=== PATIENT | male | born 1935 | race Caucasian/White ===

== ENCOUNTER 2018-10-21 18:18 | Inpatient (IN) | payer MEDICARE, OTHER ==
[~2018-10-21] VITALS: Ht 177.8 cm; Wt 96.2 kg
[2018-10-21] VITALS (15 sets, daily range): BP systolic 90–106; BP diastolic 52–67
--- OUTSIDE RECORDS SUMMARY | 2018-10-21 20:18 | XMS REPORT | Clinical Summary ---
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 Juan Ramon Landeros MD Retention of urine, unspecified Urinary incontinence 788.30 Active Juan Ramon Landeros MD Urinary incontinence, unspecified Urethral stricture 598.9 Active Juan Ramon Landeros MD Urethral stricture, unspecified Medication List Medication Instructions Start Date Stop Date Generic Name NDC Status Provider Patient Instruction LEVSIN 0.125 MG ORAL TABLET 1 tab by mouth every 8 hours prn bladder spasms HYOSCYAMINE SULFATE 98532016796 Active Juan Ramon Landeros MD Active ZOFRAN 4 MG ORAL TABLET 1 po q6hr PRN Nausea ONDANSETRON HCL 20940205150 Active Juan Ramon Landeros MD Active ZINC 50 MG ORAL TABLET 1 tab by mouth daily ZINC 96977600048 Active Juan Ramon Landeros MD Active XARELTO 20 MG ORAL TABLET 1 tab by mouth daily RIVAROXABAN 75379133812 Active Juan Ramon Landeros MD Active XALATAN 0.005 % OPHTHALMIC SOLUTION 1 drop in both eyes LATANOPROST 32100194433 Active Juan Ramon Landeros MD Active VITAMIN C PLUS 500 MG ORAL TABLET 1 tab by mouth daily BIOFLAVONOID PRODUCTS 64805041786 Active Juan Ramon Landeros MD Active FLOMAX 0.4 MG ORAL CAPSULE 1 Daily TAMSULOSIN HCL 00957955080 Active Juan Ramon Landeros MD Active SENOKOT 8.6 MG ORAL TABLET 1 tab by mouth twice daily SENNOSIDES 15275558314 Active Juan Ramon Landeros MD Active JUAN-E.P.A. 200-300 MG ORAL CAPSULE 1 tab by mouth twice daily OMEGA-3 FATTY ACIDS 27569773176 Active Juan Ramon Landeros MD Active BENICAR 5 MG ORAL TABLET 1 tab by mouth daily OLMESARTAN MEDOXOMIL 75884199040 Active Juan Ramon Landeros MD Active LOPRESSOR 50 MG ORAL TABLET 1 tab by mouth twice daily METOPROLOL TARTRATE 83754668446 Active Juan Ramon Landeros MD Active KAVA KAVA 200 MG ORAL CAPSULE 1 cap by mouth twice daily prn anxiety KAVA (PIPER METHYSTICUM) 03083515020 Active Juan Ramon Landeros MD Active CARDIZEM CD 120 MG ORAL CAPSULE EXTENDED RELEASE 24 HOUR 1 tab by mouth daily DILTIAZEM HCL COATED BEADS 41892147328 Active Juan Ramon Landeros MD Active BISCOLAX 10 MG RECTAL SUPPOSITORY 1 suppository rectally every 24 hours prn constipation BISACODYL 40332730182 Active Juan Ramon Landeros MD Active BENEFIBER PLUS CALCIUM ORAL POWDER 1 tablespoon by mouth daily WHEAT DEXTRIN-CALCIUM 93553743235 Active Juan Ramon Landeros MD Active ACETAMINOPHEN 325 MG ORAL TABLET 2 tabs by mouth every 4 hours prn ACETAMINOPHEN 53523084237 Active Juan Ramon Landeros MD Active Advance Directives Directive Description Start Date DURABLE POWER OF ACCOUNT DEVELOPMENT EXECUTIVE FOR HEALTHCARE Vital Signs Date Name Value Unit Range Description blood pressure, diastolic, repeated by physician 72 BP martínez blood pressure, diastolic 72 mm[Hg] BP martínez blood pressure, systolic, repeated by physician 118 BP sys blood pressure, systolic 118 mm[Hg] BP sys pulse rate E&M 70 /min Heart rate temperature E&M 98.0 [degF] Body temperature blood pressure, diastolic 65 mm[Hg] BP martínez blood pressure, systolic 115 mm[Hg] BP sys pulse rate E&M 68 /min Heart rate temperature E&M 98.1 [degF] Body temperature weight E&M 213 [lb_av] Weight Measured Encounters Code Encounter Date Provider Facility CPT-30611 Level 3 Est. Patient 15:42:26 CDT Juan Ramon Landeros MD [facility] CPT-77087 Level 3 Est. Patient 12:46:20 CDT Juan Ramon Landeros MD [facility] CPT-84246 Level 3 Est. Patient 23:23:09 CDT Juan Ramon Landeros MD [facility] CPT-07415 Level 3 New Patient 14:12:38 CDT Juan Ramon Landeros MD [facility] Procedures Code Procedure Name Date Entry Date Standard Description CPT-20502 Dil ureth strict sound/dilator M int 12:46:21 CDT 06/02 CPT-49073 Insert temp indwelling bld cath comp 12:46:21 CDT 06/02 CPT-52740 Cystoscopy 12:46:21 CDT CPT-89342 Bladder Scan 14:12:38 CDT
--- OUTSIDE RECORDS SUMMARY | 2018-10-21 20:18 | XMS REPORT | Clinical Summary ---
Author Author Admin, QIE Organization [facility] Address Unknown Phone Unavailable Allergies, Adverse Reactions, [...] 8 hours prn bladder spasms HYOSCYAMINE SULFATE 67817509129 Active Juan Ramon Landeros MD Active ZOFRAN 4 MG ORAL TABLET 1 po q6hr PRN Nausea ONDANSETRON HCL 20996735991 Active Juan Ramon Landeros MD Active ZINC 50 MG ORAL TABLET 1 tab by mouth daily ZINC 03460964447 Active Juan Ramon Landeros MD Active XARELTO 20 MG ORAL TABLET 1 tab by mouth daily RIVAROXABAN 64237262666 Active Juan Ramon Landeros MD Active XALATAN 0.005 % OPHTHALMIC SOLUTION 1 drop in both eyes LATANOPROST 08088748728 Active Juan Ramon Landeros MD Active VITAMIN C PLUS 500 MG ORAL TABLET 1 tab by mouth daily BIOFLAVONOID PRODUCTS 67082069170 Active Juan Ramon Landeros MD Active FLOMAX 0.4 MG ORAL CAPSULE 1 Daily TAMSULOSIN HCL 19557989351 Active Juan Ramon Landeros MD Active SENOKOT 8.6 MG ORAL TABLET 1 tab by mouth twice daily SENNOSIDES 02886014565 Active Juan Ramon Landeros MD Active JUAN-E.P.A. 200-300 MG ORAL CAPSULE 1 tab by mouth twice daily OMEGA-3 FATTY ACIDS 90913430245 Active Juan Ramon Landeros MD Active BENICAR 5 MG ORAL TABLET 1 tab by mouth daily OLMESARTAN MEDOXOMIL 84413217517 Active Juan Ramon Landeros MD Active LOPRESSOR 50 MG ORAL TABLET 1 tab by mouth twice daily METOPROLOL TARTRATE 42197162689 Active Juan Ramon Landeros MD Active KAVA KAVA 200 MG ORAL CAPSULE 1 cap by mouth twice daily prn anxiety KAVA (PIPER METHYSTICUM) 34685475879 Active Juan Ramon Landeros MD Active CARDIZEM CD 120 MG ORAL CAPSULE EXTENDED RELEASE 24 HOUR 1 tab by mouth daily DILTIAZEM HCL COATED BEADS 95408611520 Active Juan Ramon Landeros MD Active BISCOLAX 10 MG RECTAL SUPPOSITORY 1 suppository rectally every 24 hours prn constipation BISACODYL 27637912136 Active Juan Ramon Landeros MD Active BENEFIBER PLUS CALCIUM ORAL POWDER 1 tablespoon by mouth daily WHEAT DEXTRIN-CALCIUM 75834888400 Active Juan Ramon Landeros MD Active ACETAMINOPHEN 325 MG ORAL TABLET 2 tabs by mouth every 4 hours prn ACETAMINOPHEN 80645199221 Active Juan Ramon Landeros MD Active Advance Directives Directive Description Start Date DURABLE POWER OF DRY PLASTERER HELPER FOR HEALTHCARE Vital Signs Date Name Value [...] Measured Encounters Code Encounter Date Provider Facility CPT-87165 Level 3 Est. Patient 15:42:26 CDT Juan Ramon Landeros MD [facility] CPT-37930 Level 3 Est. Patient 12:46:20 CDT Juan Ramon Landeros MD [facility] CPT-78887 Level 3 Est. Patient 23:23:09 CDT Juan Ramon Landeros MD [facility] CPT-65795 Level 3 New Patient 14:12:38 CDT Juan Ramon Landeros MD [facility] Procedures Code Procedure Name Date Entry Date Standard Description CPT-19874 Dil ureth strict sound/dilator M int 12:46:21 CDT 06/02 CPT-37884 Insert temp indwelling bld cath comp 12:46:21 CDT 06/02 CPT-14847 Cystoscopy 12:46:21 CDT CPT-20055 Bladder Scan 14:12:38 CDT
--- OUTSIDE RECORDS SUMMARY | 2018-10-21 20:19 | XMS REPORT | Clinical Summary ---
Author Author Admin, E Organization [facility] Address Unknown Phone Unavailable Allergies, Adverse [...] 8 hours prn bladder spasms HYOSCYAMINE SULFATE 50791296082 Active Juan Ramon Landeros MD Active ZOFRAN 4 MG ORAL TABLET 1 po q6hr PRN Nausea ONDANSETRON HCL 11565557799 Active Juan Ramon Landeros MD Active ZINC 50 MG ORAL TABLET 1 tab by mouth daily ZINC 34139609690 Active Juan Ramon Landeros MD Active XARELTO 20 MG ORAL TABLET 1 tab by mouth daily RIVAROXABAN 47893903296 Active Juan Ramon Landeros MD Active XALATAN 0.005 % OPHTHALMIC SOLUTION 1 drop in both eyes LATANOPROST 08264269141 Active Juan Ramon Landeros MD Active VITAMIN C PLUS 500 MG ORAL TABLET 1 tab by mouth daily BIOFLAVONOID PRODUCTS 59885350846 Active Juan Ramon Landeros MD Active FLOMAX 0.4 MG ORAL CAPSULE 1 Daily TAMSULOSIN HCL 88981672525 Active Juan Ramon Landeros MD Active SENOKOT 8.6 MG ORAL TABLET 1 tab by mouth twice daily SENNOSIDES 99315166155 Active Juan Ramon Landeros MD Active JUAN-E.P.A. 200-300 MG ORAL CAPSULE 1 tab by mouth twice daily OMEGA-3 FATTY ACIDS 23080962551 Active Juan Ramon Landeros MD Active BENICAR 5 MG ORAL TABLET 1 tab by mouth daily OLMESARTAN MEDOXOMIL 03299930974 Active Juan Ramon Landeros MD Active LOPRESSOR 50 MG ORAL TABLET 1 tab by mouth twice daily METOPROLOL TARTRATE 06272299197 Active Juan Ramon Landeros MD Active KAVA KAVA 200 MG ORAL CAPSULE 1 cap by mouth twice daily prn anxiety KAVA (PIPER METHYSTICUM) 06320885264 Active Juan Ramon Landeros MD Active CARDIZEM CD 120 MG ORAL CAPSULE EXTENDED RELEASE 24 HOUR 1 tab by mouth daily DILTIAZEM HCL COATED BEADS 39382678159 Active Juan Ramon Landeros MD Active BISCOLAX 10 MG RECTAL SUPPOSITORY 1 suppository rectally every 24 hours prn constipation BISACODYL 77147401682 Active Juan Ramon Landeros MD Active BENEFIBER PLUS CALCIUM ORAL POWDER 1 tablespoon by mouth daily WHEAT DEXTRIN-CALCIUM 69498174746 Active Juan Ramon Landeros MD Active ACETAMINOPHEN 325 MG ORAL TABLET 2 tabs by mouth every 4 hours prn ACETAMINOPHEN 92391685605 Active Juan Ramon Landeros MD Active Advance Directives Directive Description Start Date DURABLE POWER OF FINISHED STOCK INSPECTOR FOR HEALTHCARE Vital Signs Date Name Value [...] Measured Encounters Code Encounter Date Provider Facility CPT-28389 Level 3 Est. Patient 15:42:26 CDT Juan Ramon Landeros MD [facility] CPT-78405 Level 3 Est. Patient 12:46:20 CDT Juan Ramon Landeros MD [facility] CPT-93571 Level 3 Est. Patient 23:23:09 CDT Juan Ramon Landeros MD [facility] CPT-60123 Level 3 New Patient 14:12:38 CDT Juan Ramon Landeros MD [facility] Procedures Code Procedure Name Date Entry Date Standard Description CPT-52428 Dil ureth strict sound/dilator M int 12:46:21 CDT 06/02 CPT-03566 Insert temp indwelling bld cath comp 12:46:21 CDT 06/02 CPT-73254 Cystoscopy 12:46:21 CDT CPT-78239 Bladder Scan 14:12:38 CDT
--- OUTSIDE RECORDS SUMMARY | 2018-10-21 20:19 | XMS REPORT | Clinical Summary ---
Author Author Admin, JOHANN Organization [facility] Address Unknown Phone Unavailable Allergies, Adverse Reactions, [...] Generic Name NDC Status Provider Patient Instruction ZOFRAN 4 MG TABS 1 po q6hr PRN Nausea ONDANSETRON HCL 85380604686 Active Juan Ramon Landeros MD Active ZINC 50 MG ORAL TABS 1 tab by mouth daily ZINC 81130408184 Active Juan Ramon Landeros MD Active XARELTO 20 MG ORAL TABS 1 tab by mouth daily RIVAROXABAN 30186273696 Active Juan Ramon Landeros MD Active XALATAN 0.005 % SOLUTION 1 drop in both eyes LATANOPROST 65145233793 Active Juan Ramon Landeros MD Active VITAMIN C PLUS 500 MG ORAL TABS 1 tab by mouth daily BIOFLAVONOID PRODUCTS 49810922216 Active Juan Ramon Landeros MD Active FLOMAX 0.4 MG CAPS 1 Daily TAMSULOSIN HCL 04742087245 Active Juan Ramon Landeros MD Active SENOKOT 8.6 MG ORAL TABS 1 tab by mouth twice daily SENNOSIDES 29190869346 Active Juan Ramon Landeros MD Active JUAN-E.P.A. 200-300 MG ORAL CAPS 1 tab by mouth twice daily OMEGA-3 FATTY ACIDS 44974618393 Active Juan Ramon Landeros MD Active BENICAR 5 MG ORAL TABS 1 tab by mouth daily OLMESARTAN MEDOXOMIL 45141041922 Active Juan Ramon Landeros MD Active LOPRESSOR 50 MG TAB 1 tab by mouth twice daily METOPROLOL TARTRATE 50393085624 Active Juan Ramon Landeros MD Active KAVA KAVA 200 MG ORAL CAPS 1 cap by mouth twice daily prn anxiety KAVA (PIPER METHYSTICUM) 07776883107 Active Juan Ramon Landeros MD Active CARDIZEM CD 120 MG CAPCR24 1 tab by mouth daily DILTIAZEM HCL COATED BEADS 53372428422 Active Juan Ramon Landeros MD Active BISCOLAX 10 MG RECTAL SUPP 1 suppository rectally every 24 hours prn constipation BISACODYL 45789424166 Active Juan Ramon Landeros MD Active BENEFIBER PLUS CALCIUM ORAL POWD 1 tablespoon by mouth daily WHEAT DEXTRIN-CALCIUM 35808164604 Active Juan Ramon Landeros MD Active ACETAMINOPHEN 325 MG ORAL TABS 2 tabs by mouth every 4 hours prn ACETAMINOPHEN 47777529978 Active Juan Ramon Landeros MD Active Advance Directives Directive Description Start Date DURABLE POWER OF SHIRT IRONER SUPERVISOR FOR HEALTHCARE Vital Signs Date Name Value Unit Range Description blood pressure, diastolic 60 mm[Hg] BP martínez blood pressure, systolic 120 mm[Hg] BP sys pulse rate E&M 70 /min Heart rate temperature E&M 97.6 [degF] Body temperature weight E&M 213 [lb_av] Weight Measured blood pressure, diastolic 83 mm[Hg] BP martínez blood pressure, systolic 132 mm[Hg] BP sys pulse rate E&M 75 /min Heart rate temperature E&M 98.1 [degF] Body temperature weight E&M 213 [lb_av] Weight Measured blood pressure, diastolic 80 mm[Hg] BP martínez blood pressure, systolic 140 mm[Hg] BP sys height E&M 70 [in_us] Bdy height pulse rate E&M 76 /min Heart rate temperature E&M 98.2 [degF] Body temperature weight E&M 213 [lb_av] Weight Measured Encounters Code Encounter Date Provider Facility CPT-19194 Level 3 Est. Patient 12:46:20 CDT Juan Ramon Landeros MD [facility] CPT-14927 Level 3 Est. Patient 23:23:09 CDT Juan Ramon Landeros MD [facility] CPT-66250 Level 3 New Patient 14:12:38 CDT Juan Ramon Landeros MD [facility] Procedures Code Procedure Name Date Entry Date Standard Description CPT-34063 Dil ureth strict sound/dilator M int 12:46:21 CDT 06/02 CPT-24673 Insert temp indwelling bld cath comp 12:46:21 CDT 06/02 CPT-83200 Cystoscopy 12:46:21 CDT CPT-88784 Bladder Scan 14:12:38 CDT
--- OUTSIDE RECORDS SUMMARY | 2018-10-21 20:19 | XMS REPORT | Clinical Summary ---
Author Author Admin, E Organization [facility] Address Unknown Phone Unavailable Allergies, Adverse Reactions, [...] 8 hours prn bladder spasms HYOSCYAMINE SULFATE 49113899841 Active Juan Ramon Landeros MD Active ZOFRAN 4 MG TABS 1 po q6hr PRN Nausea ONDANSETRON HCL 49672887957 Active Juan Ramon Landeros MD Active ZINC 50 MG ORAL TABS 1 tab by mouth daily ZINC 01702080213 Active Juan Ramon Landeros MD Active XARELTO 20 MG ORAL TABS 1 tab by mouth daily RIVAROXABAN 76066322887 Active Juan Ramon Landeros MD Active XALATAN 0.005 % SOLUTION 1 drop in both eyes LATANOPROST 25511638380 Active Juan Ramon Landeros MD Active VITAMIN C PLUS 500 MG ORAL TABS 1 tab by mouth daily BIOFLAVONOID PRODUCTS 45878888301 Active Juan Ramon Landeros MD Active FLOMAX 0.4 MG CAPS 1 Daily TAMSULOSIN HCL 78299963670 Active Juan Ramon Landeros MD Active SENOKOT 8.6 MG ORAL TABS 1 tab by mouth twice daily SENNOSIDES 38773727891 Active Juan Ramon Landeros MD Active JUAN-E.P.A. 200-300 MG ORAL CAPS 1 tab by mouth twice daily OMEGA-3 FATTY ACIDS 51240688407 Active Juan Ramon Landeros MD Active BENICAR 5 MG ORAL TABS 1 tab by mouth daily OLMESARTAN MEDOXOMIL 04778605875 Active Juan Ramon Landeros MD Active LOPRESSOR 50 MG TAB 1 tab by mouth twice daily METOPROLOL TARTRATE 75893279140 Active Juan Ramon Landeros MD Active KAVA KAVA 200 MG ORAL CAPS 1 cap by mouth twice daily prn anxiety KAVA (PIPER METHYSTICUM) 87803845486 Active Juan Ramon Landeros MD Active CARDIZEM CD 120 MG CAPCR24 1 tab by mouth daily DILTIAZEM HCL COATED BEADS 70830272376 Active Juan Ramon Landeros MD Active BISCOLAX 10 MG RECTAL SUPP 1 suppository rectally every 24 hours prn constipation BISACODYL 74721561015 Active Juan Ramon Landeros MD Active BENEFIBER PLUS CALCIUM ORAL POWD 1 tablespoon by mouth daily WHEAT DEXTRIN-CALCIUM 09184222337 Active Juan Ramon Landeros MD Active ACETAMINOPHEN 325 MG ORAL TABS 2 tabs by mouth every 4 hours prn ACETAMINOPHEN 38764501464 Active Juan Ramon Landeros MD Active Advance Directives Directive Description Start Date DURABLE POWER OF SHELL MACHINE OPERATOR FOR HEALTHCARE Vital Signs Date Name Value Unit Range Description blood pressure, diastolic 65 mm[Hg] BP martínez blood pressure, systolic 115 mm[Hg] BP sys pulse rate E&M 68 /min Heart rate temperature E&M 98.1 [degF] Body temperature weight E&M 213 [lb_av] Weight Measured blood pressure, diastolic 60 mm[Hg] BP martínez [...] Measured Encounters Code Encounter Date Provider Facility CPT-44644 Level 3 Est. Patient 12:46:20 CDT Juan Ramon Landeros MD [facility] CPT-17431 Level 3 Est. Patient 23:23:09 CDT Juan Ramon Landeros MD [facility] CPT-43198 Level 3 New Patient 14:12:38 CDT Juan Ramon Landeros MD [facility] Procedures Code Procedure Name Date Entry Date Standard Description CPT-65641 Dil ureth strict sound/dilator M int 12:46:21 CDT 06/02 CPT-42440 Insert temp indwelling bld cath comp 12:46:21 CDT 06/02 CPT-22401 Cystoscopy 12:46:21 CDT CPT-73990 Bladder Scan 14:12:38 CDT
--- OUTSIDE RECORDS SUMMARY | 2018-10-21 20:19 | XMS REPORT | Clinical Summary ---
[...] 8 hours prn bladder spasms HYOSCYAMINE SULFATE 17862964755 Active Juan Ramon Landeros MD Active ZOFRAN 4 MG ORAL TABLET 1 po q6hr PRN Nausea ONDANSETRON HCL 18024307303 Active Juan Ramon Landeros MD Active ZINC 50 MG ORAL TABLET 1 tab by mouth daily ZINC 06481636794 Active Juan Ramon Landeros MD Active XARELTO 20 MG ORAL TABLET 1 tab by mouth daily RIVAROXABAN 90160962434 Active Juan Ramon Landeros MD Active XALATAN 0.005 % OPHTHALMIC SOLUTION 1 drop in both eyes LATANOPROST 59786928202 Active Juan Ramon Landeros MD Active VITAMIN C PLUS 500 MG ORAL TABLET 1 tab by mouth daily BIOFLAVONOID PRODUCTS 25336684857 Active Juan Ramon Landeros MD Active FLOMAX 0.4 MG ORAL CAPSULE 1 Daily TAMSULOSIN HCL 09365615156 Active Juan Ramon Landeros MD Active SENOKOT 8.6 MG ORAL TABLET 1 tab by mouth twice daily SENNOSIDES 02423376832 Active Juan Ramon Landeros MD Active JUAN-E.P.A. 200-300 MG ORAL CAPSULE 1 tab by mouth twice daily OMEGA-3 FATTY ACIDS 05978131311 Active Juan Ramon Landeros MD Active BENICAR 5 MG ORAL TABLET 1 tab by mouth daily OLMESARTAN MEDOXOMIL 75594692328 Active Juan Ramon Landeros MD Active LOPRESSOR 50 MG ORAL TABLET 1 tab by mouth twice daily METOPROLOL TARTRATE 13255839059 Active Juan Ramon Landeros MD Active KAVA KAVA 200 MG ORAL CAPSULE 1 cap by mouth twice daily prn anxiety KAVA (PIPER METHYSTICUM) 51345200269 Active Juan Ramon Landeros MD Active CARDIZEM CD 120 MG ORAL CAPSULE EXTENDED RELEASE 24 HOUR 1 tab by mouth daily DILTIAZEM HCL COATED BEADS 79499824033 Active Juan Ramon Landeros MD Active BISCOLAX 10 MG RECTAL SUPPOSITORY 1 suppository rectally every 24 hours prn constipation BISACODYL 69220585689 Active Juan Ramon Landeros MD Active BENEFIBER PLUS CALCIUM ORAL POWDER 1 tablespoon by mouth daily WHEAT DEXTRIN-CALCIUM 71335955797 Active Juan Ramon Landeros MD Active ACETAMINOPHEN 325 MG ORAL TABLET 2 tabs by mouth every 4 hours prn ACETAMINOPHEN 04737211234 Active Juan Ramon Landeros MD Active Advance Directives Directive Description Start Date DURABLE POWER OF AIRLINE STATION AGENT FOR HEALTHCARE Vital Signs Date Name Value [...] Measured Encounters Code Encounter Date Provider Facility CPT-13134 Level 3 Est. Patient 15:42:26 CDT Juan Ramon Landeros MD [facility] CPT-24220 Level 3 Est. Patient 12:46:20 CDT Juan Ramon Landeros MD [facility] CPT-77404 Level 3 Est. Patient 23:23:09 CDT Juan Ramon Landeros MD [facility] CPT-14225 Level 3 New Patient 14:12:38 CDT Juan Ramon Landeros MD [facility] Procedures Code Procedure Name Date Entry Date Standard Description CPT-53888 Dil ureth strict sound/dilator M int 12:46:21 CDT 06/02 CPT-21899 Insert temp indwelling bld cath comp 12:46:21 CDT 06/02 CPT-92066 Cystoscopy 12:46:21 CDT CPT-92046 Bladder Scan 14:12:38 CDT
--- OUTSIDE RECORDS SUMMARY | 2018-10-21 20:19 | XMS REPORT | Clinical Summary ---
Author Author Admin, QIE Organization [facility] Address Unknown Phone Unavailable Allergies, Adverse [...] 1 po q6hr PRN Nausea ONDANSETRON HCL 45431182304 Active Juan Ramon Landeros MD Active ZINC 50 MG ORAL TABS 1 tab by mouth daily ZINC 81360732155 Active Juan Ramon Landeros MD Active XARELTO 20 MG ORAL TABS 1 tab by mouth daily RIVAROXABAN 88131091162 Active Juan Ramon Landeros MD Active XALATAN 0.005 % SOLUTION 1 drop in both eyes LATANOPROST 71111841225 Active Juan Ramon Landeros MD Active VITAMIN C PLUS 500 MG ORAL TABS 1 tab by mouth daily BIOFLAVONOID PRODUCTS 76827925083 Active Juan Ramon Landeros MD Active FLOMAX 0.4 MG CAPS 1 Daily TAMSULOSIN HCL 52052549061 Active Juan Ramon Landeros MD Active SENOKOT 8.6 MG ORAL TABS 1 tab by mouth twice daily SENNOSIDES 02149402921 Active Juan Ramon Landeros MD Active JUAN-E.P.A. 200-300 MG ORAL CAPS 1 tab by mouth twice daily OMEGA-3 FATTY ACIDS 91514953782 Active Juan Ramon Landeros MD Active BENICAR 5 MG ORAL TABS 1 tab by mouth daily OLMESARTAN MEDOXOMIL 27158963460 Active Juan Ramon Landeros MD Active LOPRESSOR 50 MG TAB 1 tab by mouth twice daily METOPROLOL TARTRATE 55586480385 Active Juan Ramon Landeros MD Active KAVA KAVA 200 MG ORAL CAPS 1 cap by mouth twice daily prn anxiety KAVA (PIPER METHYSTICUM) 88557912070 Active Juan Ramon Landeros MD Active CARDIZEM CD 120 MG CAPCR24 1 tab by mouth daily DILTIAZEM HCL COATED BEADS 32184243881 Active Juan Ramon Landeros MD Active BISCOLAX 10 MG RECTAL SUPP 1 suppository rectally every 24 hours prn constipation BISACODYL 64938591202 Active Juan Ramon Landeros MD Active BENEFIBER PLUS CALCIUM ORAL POWD 1 tablespoon by mouth daily WHEAT DEXTRIN-CALCIUM 64262061409 Active Juan Ramon Landeros MD Active ACETAMINOPHEN 325 MG ORAL TABS 2 tabs by mouth every 4 hours prn ACETAMINOPHEN 20756931495 Active Juan Ramon Landeros MD Active Advance Directives Directive Description Start Date DURABLE POWER OF DEVELOPMENT AND PLANNING ENGINEER FOR HEALTHCARE Vital Signs Date Name Value [...] Measured Encounters Code Encounter Date Provider Facility CPT-81582 Level 3 Est. Patient 12:46:20 CDT Juan Ramon Landeros MD [facility] CPT-94108 Level 3 Est. Patient 23:23:09 CDT Juan Ramon Landeros MD [facility] CPT-68373 Level 3 New Patient 14:12:38 CDT Juan Ramon Landeros MD [facility] Procedures Code Procedure Name Date Entry Date Standard Description CPT-36875 Dil ureth strict sound/dilator M int 12:46:21 CDT 06/02 CPT-09282 Insert temp indwelling bld cath comp 12:46:21 CDT 06/02 CPT-04213 Cystoscopy 12:46:21 CDT CPT-78924 Bladder Scan 14:12:38 CDT
--- OUTSIDE RECORDS SUMMARY | 2018-10-21 20:19 | XMS REPORT | Clinical Summary ---
Author Author Admin, QIE Organization [facility] Address Unknown Phone Unavailable Allergies, Adverse Reactions, [...] 1 po q6hr PRN Nausea ONDANSETRON HCL 02952091541 Active Juan Ramon Landeros MD Active ZINC 50 MG ORAL TABS 1 tab by mouth daily ZINC 27069584296 Active Juan Ramon Landeros MD Active XARELTO 20 MG ORAL TABS 1 tab by mouth daily RIVAROXABAN 80734307155 Active Juan Ramon Landeros MD Active XALATAN 0.005 % SOLUTION 1 drop in both eyes LATANOPROST 73888947926 Active Juan Ramon Landeros MD Active VITAMIN C PLUS 500 MG ORAL TABS 1 tab by mouth daily BIOFLAVONOID PRODUCTS 74516631172 Active Juan Ramon Landeros MD Active FLOMAX 0.4 MG CAPS 1 Daily TAMSULOSIN HCL 32199618341 Active Juan Ramon Landeros MD Active SENOKOT 8.6 MG ORAL TABS 1 tab by mouth twice daily SENNOSIDES 20432411907 Active Juan Ramon Landeros MD Active JUAN-E.P.A. 200-300 MG ORAL CAPS 1 tab by mouth twice daily OMEGA-3 FATTY ACIDS 60852167748 Active Juan Ramon Landeros MD Active BENICAR 5 MG ORAL TABS 1 tab by mouth daily OLMESARTAN MEDOXOMIL 08093701768 Active Juan Ramon Landeros MD Active LOPRESSOR 50 MG TAB 1 tab by mouth twice daily METOPROLOL TARTRATE 25100956479 Active Juan Ramon Landeros MD Active KAVA KAVA 200 MG ORAL CAPS 1 cap by mouth twice daily prn anxiety KAVA (PIPER METHYSTICUM) 75795486421 Active Juan Ramon Landeros MD Active CARDIZEM CD 120 MG CAPCR24 1 tab by mouth daily DILTIAZEM HCL COATED BEADS 10839341793 Active Juan Ramon Landeros MD Active BISCOLAX 10 MG RECTAL SUPP 1 suppository rectally every 24 hours prn constipation BISACODYL 25092956854 Active Juan Ramon Landeros MD Active BENEFIBER PLUS CALCIUM ORAL POWD 1 tablespoon by mouth daily WHEAT DEXTRIN-CALCIUM 08323536986 Active Juan Ramon Landeros MD Active ACETAMINOPHEN 325 MG ORAL TABS 2 tabs by mouth every 4 hours prn ACETAMINOPHEN 62335307078 Active Juan Ramon Landeros MD Active Advance Directives Directive Description Start Date DURABLE POWER OF DECKHAND ENGINEER FOR HEALTHCARE Vital Signs Date Name [...] Measured Encounters Code Encounter Date Provider Facility CPT-15759 Level 3 Est. Patient 12:46:20 CDT Juan Ramon Landeros MD [facility] CPT-40637 Level 3 Est. Patient 23:23:09 CDT Juan Ramon Landeros MD [facility] CPT-50502 Level 3 New Patient 14:12:38 CDT Juan Ramon Landeros MD [facility] Procedures Code Procedure Name Date Entry Date Standard Description CPT-33588 Dil ureth strict sound/dilator M int 12:46:21 CDT 06/02 CPT-76115 Insert temp indwelling bld cath comp 12:46:21 CDT 06/02 CPT-01108 Cystoscopy 12:46:21 CDT CPT-30322 Bladder Scan 14:12:38 CDT
--- OUTSIDE RECORDS SUMMARY | 2018-10-21 20:20 | XMS REPORT | Clinical Summary ---
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 Juan Ramon Landeros MD Retention of urine, unspecified Urinary incontinence 788.30 Active Juan Ramon Landeros MD Urinary incontinence, unspecified Medication List Medication Instructions Start Date Stop Date Generic Name NDC Status Provider Patient Instruction ZOFRAN 4 MG TABS 1 po q6hr PRN Nausea ONDANSETRON HCL 67733601743 Active Juan Ramon Landeros MD Active ZINC 50 MG ORAL TABS 1 tab by mouth daily ZINC 23696074740 Active Juan Ramon Landeros MD Active XARELTO 20 MG ORAL TABS 1 tab by mouth daily RIVAROXABAN 75157426594 Active Juan Ramon Landeros MD Active XALATAN 0.005 % SOLUTION 1 drop in both eyes LATANOPROST 95638397626 Active Juan Ramon Landeros MD Active VITAMIN C PLUS 500 MG ORAL TABS 1 tab by mouth daily BIOFLAVONOID PRODUCTS 21374679676 Active Juan Ramon Landeros MD Active FLOMAX 0.4 MG CAPS 1 Daily TAMSULOSIN HCL 69208761572 Active Juan Ramon Landeros MD Active SENOKOT 8.6 MG ORAL TABS 1 tab by mouth twice daily SENNOSIDES 92292485346 Active Juan Ramon Landeros MD Active JUAN-E.P.A. 200-300 MG ORAL CAPS 1 tab by mouth twice daily OMEGA-3 FATTY ACIDS 08730283057 Active Juan Ramon Landeros MD Active BENICAR 5 MG ORAL TABS 1 tab by mouth daily OLMESARTAN MEDOXOMIL 73977238831 Active Juan Ramon Landeros MD Active LOPRESSOR 50 MG TAB 1 tab by mouth twice daily METOPROLOL TARTRATE 26551514782 Active Juan Ramon Landeros MD Active KAVA KAVA 200 MG ORAL CAPS 1 cap by mouth twice daily prn anxiety KAVA (PIPER METHYSTICUM) 02059124564 Active Juan Ramon Landeros MD Active CARDIZEM CD 120 MG CAPCR24 1 tab by mouth daily DILTIAZEM HCL COATED BEADS 30486518099 Active Juan Ramon Landeros MD Active BISCOLAX 10 MG RECTAL SUPP 1 suppository rectally every 24 hours prn constipation BISACODYL 15801513523 Active Juan Ramon Landeros MD Active BENEFIBER PLUS CALCIUM ORAL POWD 1 tablespoon by mouth daily WHEAT DEXTRIN-CALCIUM 46171853536 Active Juan Ramon Landeros MD Active ACETAMINOPHEN 325 MG ORAL TABS 2 tabs by mouth every 4 hours prn ACETAMINOPHEN 86714611589 Active Juan Ramon Landeros MD Active Vital Signs Date Name Value Unit Range Description blood pressure, diastolic - 8462-4 83 mm[Hg] BP martínez blood pressure, systolic - 8480-6 132 mm[Hg] BP sys pulse rate E&M - 8867-4 75 /min Heart rate temperature E&M 98.1 [degF] Body temperature weight E&M - 3141-9 213 [lb_av] Weight Measured blood pressure, diastolic - 8462-4 80 mm[Hg] BP martínez blood pressure, systolic - 8480-6 140 mm[Hg] BP sys height E&M - 8302-2 70 [in_us] Bdy height pulse rate E&M - 8867-4 76 /min Heart rate temperature E&M 98.2 [degF] Body temperature weight E&M - 3141-9 213 [lb_av] Weight Measured Encounters Code Encounter Date Provider Facility CPT-30000 Level 3 Est. Patient 23:23:09 CDT Juan Ramon Landeros MD [facility] CPT-55099 Level 3 New Patient 14:12:38 CDT Juan Ramon Landeros MD [facility] Procedures Code Procedure Name Date Entry Date Standard Description CPT-61949 Bladder Scan 14:12:38 CDT
--- OUTSIDE RECORDS SUMMARY | 2018-10-21 20:20 | XMS REPORT | Clinical Summary ---
Author Author Admin, QIE Organization [facility] Address Unknown Phone Unavailable Allergies, Adverse [...] 1 po q6hr PRN Nausea ONDANSETRON HCL 25804107909 Active Juan Ramon Landeros MD Active ZINC 50 MG ORAL TABS 1 tab by mouth daily ZINC 59844292013 Active Juan Ramon Landeros MD Active XARELTO 20 MG ORAL TABS 1 tab by mouth daily RIVAROXABAN 81513208487 Active Juan Ramon Landeros MD Active XALATAN 0.005 % SOLUTION 1 drop in both eyes LATANOPROST 96626662376 Active Juan Ramon Landeros MD Active VITAMIN C PLUS 500 MG ORAL TABS 1 tab by mouth daily BIOFLAVONOID PRODUCTS 56406975454 Active Juan Ramon Landeros MD Active FLOMAX 0.4 MG CAPS 1 Daily TAMSULOSIN HCL 42718756050 Active Juan Ramon Landeros MD Active SENOKOT 8.6 MG ORAL TABS 1 tab by mouth twice daily SENNOSIDES 97120002711 Active Juan Ramon Landeros MD Active JUAN-E.P.A. 200-300 MG ORAL CAPS 1 tab by mouth twice daily OMEGA-3 FATTY ACIDS 74512742124 Active Juan Ramon Landeros MD Active BENICAR 5 MG ORAL TABS 1 tab by mouth daily OLMESARTAN MEDOXOMIL 35527684853 Active Juan Ramon Landeros MD Active LOPRESSOR 50 MG TAB 1 tab by mouth twice daily METOPROLOL TARTRATE 09985598796 Active Juan Ramon Landeros MD Active KAVA KAVA 200 MG ORAL CAPS 1 cap by mouth twice daily prn anxiety KAVA (PIPER METHYSTICUM) 09938676256 Active Juan Ramon Landeros MD Active CARDIZEM CD 120 MG CAPCR24 1 tab by mouth daily DILTIAZEM HCL COATED BEADS 45860119414 Active Juan Ramon Landeros MD Active BISCOLAX 10 MG RECTAL SUPP 1 suppository rectally every 24 hours prn constipation BISACODYL 34032646183 Active Juan Ramon Landeros MD Active BENEFIBER PLUS CALCIUM ORAL POWD 1 tablespoon by mouth daily WHEAT DEXTRIN-CALCIUM 02720775720 Active Juan Ramon Landeros MD Active ACETAMINOPHEN 325 MG ORAL TABS 2 tabs by mouth every 4 hours prn ACETAMINOPHEN 98280531807 Active Juan Ramon Landeros MD Active Advance Directives Directive Description Start Date DURABLE POWER OF PERSON INVESTIGATOR FOR HEALTHCARE Vital Signs Date Name Value [...] Measured Encounters Code Encounter Date Provider Facility CPT-64094 Level 3 Est. Patient 12:46:20 CDT Juan Ramon Landeros MD [facility] CPT-03331 Level 3 Est. Patient 23:23:09 CDT Juan Ramon Landeros MD [facility] CPT-35682 Level 3 New Patient 14:12:38 CDT Juan Ramon Landeros MD [facility] Procedures Code Procedure Name Date Entry Date Standard Description CPT-08288 Dil ureth strict sound/dilator M int 12:46:21 CDT 06/02 CPT-38685 Insert temp indwelling bld cath comp 12:46:21 CDT 06/02 CPT-80594 Cystoscopy 12:46:21 CDT CPT-97206 Bladder Scan 14:12:38 CDT
--- OUTSIDE RECORDS SUMMARY | 2018-10-21 20:20 | XMS REPORT | Clinical Summary ---
Author Author Admin, QIE Organization [facility] Address Unknown Phone Unavailable Allergies, Adverse [...] 1 po q6hr PRN Nausea ONDANSETRON HCL 70542796621 Active Juan Ramon Landeros MD Active ZINC 50 MG ORAL TABS 1 tab by mouth daily ZINC 79474139974 Active Juan Ramon Landeros MD Active XARELTO 20 MG ORAL TABS 1 tab by mouth daily RIVAROXABAN 26345961034 Active Juan Ramon Landeros MD Active XALATAN 0.005 % SOLUTION 1 drop in both eyes LATANOPROST 22625021820 Active Juan Ramon Landeros MD Active VITAMIN C PLUS 500 MG ORAL TABS 1 tab by mouth daily BIOFLAVONOID PRODUCTS 54717361385 Active Juan Ramon Landeros MD Active FLOMAX 0.4 MG CAPS 1 Daily TAMSULOSIN HCL 79786934805 Active Juan Ramon Landeros MD Active SENOKOT 8.6 MG ORAL TABS 1 tab by mouth twice daily SENNOSIDES 96035026172 Active Juan Ramon Landeros MD Active JUAN-E.P.A. 200-300 MG ORAL CAPS 1 tab by mouth twice daily OMEGA-3 FATTY ACIDS 70169112175 Active Juan Ramon Landeros MD Active BENICAR 5 MG ORAL TABS 1 tab by mouth daily OLMESARTAN MEDOXOMIL 97413358207 Active Juan Ramon Landeros MD Active LOPRESSOR 50 MG TAB 1 tab by mouth twice daily METOPROLOL TARTRATE 54611538073 Active Juan Ramon Landeros MD Active KAVA KAVA 200 MG ORAL CAPS 1 cap by mouth twice daily prn anxiety KAVA (PIPER METHYSTICUM) 79118756104 Active Juan Ramon Landeros MD Active CARDIZEM CD 120 MG CAPCR24 1 tab by mouth daily DILTIAZEM HCL COATED BEADS 17743296232 Active Juan Ramon Landeros MD Active BISCOLAX 10 MG RECTAL SUPP 1 suppository rectally every 24 hours prn constipation BISACODYL 19001400293 Active Juan Ramon Landeros MD Active BENEFIBER PLUS CALCIUM ORAL POWD 1 tablespoon by mouth daily WHEAT DEXTRIN-CALCIUM 77517256330 Active Juan Ramon Landeros MD Active ACETAMINOPHEN 325 MG ORAL TABS 2 tabs by mouth every 4 hours prn ACETAMINOPHEN 65558075066 Active Juan Ramon Landeros MD Active Vital [...] Measured Encounters Code Encounter Date Provider Facility CPT-23191 Level 3 Est. Patient 12:46:20 CDT Juan Ramon Landeros MD [facility] CPT-14239 Level 3 Est. Patient 23:23:09 CDT Juan Ramon Landeros MD [facility] CPT-94274 Level 3 New Patient 14:12:38 CDT Juan Ramon Landeros MD [facility] Procedures Code Procedure Name Date Entry Date Standard Description CPT-22517 Dil ureth strict sound/dilator M int 12:46:21 CDT 06/02 CPT-06511 Insert temp indwelling bld cath comp 12:46:21 CDT 06/02 CPT-12176 Cystoscopy 12:46:21 CDT CPT-76984 Bladder Scan 14:12:38 CDT
--- OUTSIDE RECORDS SUMMARY | 2018-10-21 20:20 | XMS REPORT | Clinical Summary ---
Author Author Admin, QIE Organization [facility] Address Unknown Phone Unavailable Allergies, Adverse [...] 1 po q6hr PRN Nausea ONDANSETRON HCL 41531904699 Active Juan Ramon Landeros MD Active ZINC 50 MG ORAL TABS 1 tab by mouth daily ZINC 57872778486 Active Juan Ramon Landeros MD Active XARELTO 20 MG ORAL TABS 1 tab by mouth daily RIVAROXABAN 45107539443 Active Juan Ramon Landeros MD Active XALATAN 0.005 % SOLUTION 1 drop in both eyes LATANOPROST 52510683196 Active Juan Ramon Landeros MD Active VITAMIN C PLUS 500 MG ORAL TABS 1 tab by mouth daily BIOFLAVONOID PRODUCTS 75597308103 Active Juan Ramon Landeros MD Active FLOMAX 0.4 MG CAPS 1 Daily TAMSULOSIN HCL 22306214297 Active Juan Ramon Landeros MD Active SENOKOT 8.6 MG ORAL TABS 1 tab by mouth twice daily SENNOSIDES 78588826854 Active Juan Ramon Landeros MD Active JUAN-E.P.A. 200-300 MG ORAL CAPS 1 tab by mouth twice daily OMEGA-3 FATTY ACIDS 65857214407 Active Juan Ramon Landeros MD Active BENICAR 5 MG ORAL TABS 1 tab by mouth daily OLMESARTAN MEDOXOMIL 20362798754 Active Juan Ramon Landeros MD Active LOPRESSOR 50 MG TAB 1 tab by mouth twice daily METOPROLOL TARTRATE 05078385812 Active Juan Ramon Landeros MD Active KAVA KAVA 200 MG ORAL CAPS 1 cap by mouth twice daily prn anxiety KAVA (PIPER METHYSTICUM) 21832220179 Active Juan Ramon Landeros MD Active CARDIZEM CD 120 MG CAPCR24 1 tab by mouth daily DILTIAZEM HCL COATED BEADS 21216522864 Active Juan Ramon Landeros MD Active BISCOLAX 10 MG RECTAL SUPP 1 suppository rectally every 24 hours prn constipation BISACODYL 96284534551 Active Juan Ramon Landeros MD Active BENEFIBER PLUS CALCIUM ORAL POWD 1 tablespoon by mouth daily WHEAT DEXTRIN-CALCIUM 98846720034 Active Juan Ramon Landeros MD Active ACETAMINOPHEN 325 MG ORAL TABS 2 tabs by mouth every 4 hours prn ACETAMINOPHEN 81729774801 Active Juan Ramon Landeros MD Active Advance Directives Directive Description Start Date DURABLE POWER OF EXTRUSION BENDER FOR HEALTHCARE Vital Signs Date Name Value [...] Measured Encounters Code Encounter Date Provider Facility CPT-33065 Level 3 Est. Patient 12:46:20 CDT Juan Ramon Landeros MD [facility] CPT-80224 Level 3 Est. Patient 23:23:09 CDT Juan Ramon Landeros MD [facility] CPT-91444 Level 3 New Patient 14:12:38 CDT Juan Ramon Landeros MD [facility] Procedures Code Procedure Name Date Entry Date Standard Description CPT-45535 Dil ureth strict sound/dilator M int 12:46:21 CDT 06/02 CPT-82953 Insert temp indwelling bld cath comp 12:46:21 CDT 06/02 CPT-19314 Cystoscopy 12:46:21 CDT CPT-38903 Bladder Scan 14:12:38 CDT
--- OUTSIDE RECORDS SUMMARY | 2018-10-21 20:20 | XMS REPORT | Clinical Summary ---
Author Author Admin, JOHANN Organization [facility] Address Unknown Phone Unavailable Allergies, Adverse Reactions, Alerts Allergy Name Reaction Description Start Date Severity Status Provider No Known Allergies Rose Marie Caballero RN Conditions or Problems Problem Name Problem Code Onset Date Status Entry Date Provider Comment Standard Description Annotate Overactive Bladder Active Juan Ramon Landeros MD Hypertonicity of bladder Incomplete Bladder Emptying Active Juan Ramon Landeros MD Retention of urine, unspecified Medication List Medication Instructions Start Date Stop Date Generic Name NDC Status Provider Patient Instruction Drug Treatment Unknown - unknown Vital Signs Date Name Value Unit Range Description blood pressure, diastolic - 8462-4 80 mm[Hg] BP martínez blood pressure, systolic - 8480-6 140 mm[Hg] BP sys height E&M - 8302-2 70 [in_us] Bdy height pulse rate E&M - 8867-4 76 /min Heart rate temperature E&M 98.2 [degF] Body temperature weight E&M - 3141-9 213 [lb_av] Weight Measured Encounters Code Encounter Date Provider Facility CPT-56267 Level 3 New Patient 14:12:38 CDT Juan Ramon Landeros MD [facility] Procedures Code Procedure Name Date Entry Date Standard Description CPT-81573 Bladder Scan 14:12:38 CDT
--- OUTSIDE RECORDS SUMMARY | 2018-10-21 20:20 | XMS REPORT | Clinical Summary ---
Author Author Admin, E Organization [facility] Address Unknown Phone Unavailable Allergies, Adverse [...] 1 po q6hr PRN Nausea ONDANSETRON HCL 26022271341 Active Juan Ramon Lnaderos MD Active ZINC 50 MG ORAL TABS 1 tab by mouth daily ZINC 42886665725 Active Juan Ramon Landeros MD Active XARELTO 20 MG ORAL TABS 1 tab by mouth daily RIVAROXABAN 49750601681 Active Juan Ramon Landeros MD Active XALATAN 0.005 % SOLUTION 1 drop in both eyes LATANOPROST 66135738127 Active Juan Ramon Landeros MD Active VITAMIN C PLUS 500 MG ORAL TABS 1 tab by mouth daily BIOFLAVONOID PRODUCTS 47885485335 Active Juan Ramon Landeros MD Active FLOMAX 0.4 MG CAPS 1 Daily TAMSULOSIN HCL 37196705395 Active Juan Ramon Landeros MD Active SENOKOT 8.6 MG ORAL TABS 1 tab by mouth twice daily SENNOSIDES 39638135862 Active Juan Ramon Landeros MD Active JUAN-E.P.A. 200-300 MG ORAL CAPS 1 tab by mouth twice daily OMEGA-3 FATTY ACIDS 72395534347 Active Juan Ramon Landeros MD Active BENICAR 5 MG ORAL TABS 1 tab by mouth daily OLMESARTAN MEDOXOMIL 17841231735 Active Juan Ramon Landeros MD Active LOPRESSOR 50 MG TAB 1 tab by mouth twice daily METOPROLOL TARTRATE 60079769244 Active Juan Ramon Landeros MD Active KAVA KAVA 200 MG ORAL CAPS 1 cap by mouth twice daily prn anxiety KAVA (PIPER METHYSTICUM) 03588324198 Active Juan Ramon Landeros MD Active CARDIZEM CD 120 MG CAPCR24 1 tab by mouth daily DILTIAZEM HCL COATED BEADS 19537455390 Active Juan Ramon Landeros MD Active BISCOLAX 10 MG RECTAL SUPP 1 suppository rectally every 24 hours prn constipation BISACODYL 87841556230 Active Juan Ramon Landeros MD Active BENEFIBER PLUS CALCIUM ORAL POWD 1 tablespoon by mouth daily WHEAT DEXTRIN-CALCIUM 30065346122 Active Juan Ramon Landeros MD Active ACETAMINOPHEN 325 MG ORAL TABS 2 tabs by mouth every 4 hours prn ACETAMINOPHEN 85378346201 Active Juan Ramon Landeros MD Active Advance Directives Directive Description Start Date DURABLE POWER OF PATENT LEGAL ASSISTANT FOR HEALTHCARE Vital Signs Date Name Value [...] Measured Encounters Code Encounter Date Provider Facility CPT-16603 Level 3 Est. Patient 12:46:20 CDT Juan Ramon Landeros MD [facility] CPT-75000 Level 3 Est. Patient 23:23:09 CDT Juan Ramon Landeros MD [facility] CPT-52166 Level 3 New Patient 14:12:38 CDT Juan Ramon Landeros MD [facility] Procedures Code Procedure Name Date Entry Date Standard Description CPT-16332 Dil ureth strict sound/dilator M int 12:46:21 CDT 06/02 CPT-58855 Insert temp indwelling bld cath comp 12:46:21 CDT 06/02 CPT-79637 Cystoscopy 12:46:21 CDT CPT-63854 Bladder Scan 14:12:38 CDT
--- OUTSIDE RECORDS SUMMARY | 2018-10-21 20:20 | XMS REPORT | Clinical Summary ---
Author Author Admin, ELIANE Organization [facility] Address Unknown Phone Unavailable Allergies, Adverse Reactions, [...] 1 po q6hr PRN Nausea ONDANSETRON HCL 05678230077 Active Juan Ramon Landeros MD Active ZINC 50 MG ORAL TABS 1 tab by mouth daily ZINC 96141288640 Active Juan Ramon Landeros MD Active XARELTO 20 MG ORAL TABS 1 tab by mouth daily RIVAROXABAN 61569193529 Active Juan Ramon Landeros MD Active XALATAN 0.005 % SOLUTION 1 drop in both eyes LATANOPROST 83915618296 Active Juan Ramon Landeros MD Active VITAMIN C PLUS 500 MG ORAL TABS 1 tab by mouth daily BIOFLAVONOID PRODUCTS 45632597498 Active Juan Ramon Landeros MD Active FLOMAX 0.4 MG CAPS 1 Daily TAMSULOSIN HCL 04199297522 Active Juan Ramon Landeros MD Active SENOKOT 8.6 MG ORAL TABS 1 tab by mouth twice daily SENNOSIDES 27323363371 Active Juan Ramon Landeros MD Active JUAN-E.P.A. 200-300 MG ORAL CAPS 1 tab by mouth twice daily OMEGA-3 FATTY ACIDS 71459887132 Active Juan Ramon Landeros MD Active BENICAR 5 MG ORAL TABS 1 tab by mouth daily OLMESARTAN MEDOXOMIL 42057720957 Active Juan Ramon Landeros MD Active LOPRESSOR 50 MG TAB 1 tab by mouth twice daily METOPROLOL TARTRATE 71371010584 Active Juan Ramon Landeros MD Active KAVA KAVA 200 MG ORAL CAPS 1 cap by mouth twice daily prn anxiety KAVA (PIPER METHYSTICUM) 62576620888 Active Juan Ramon Landeros MD Active CARDIZEM CD 120 MG CAPCR24 1 tab by mouth daily DILTIAZEM HCL COATED BEADS 58190722981 Active Juan Ramon Landeros MD Active BISCOLAX 10 MG RECTAL SUPP 1 suppository rectally every 24 hours prn constipation BISACODYL 47108040081 Active Juan Ramon Landeros MD Active BENEFIBER PLUS CALCIUM ORAL POWD 1 tablespoon by mouth daily WHEAT DEXTRIN-CALCIUM 08947662333 Active Juan Ramon Landeros MD Active ACETAMINOPHEN 325 MG ORAL TABS 2 tabs by mouth every 4 hours prn ACETAMINOPHEN 47701545594 Active Juan Ramon Landeros MD Active Advance Directives Directive Description Start Date DURABLE POWER OF AMMONIA REFRIGERATION TECHNICIAN FOR HEALTHCARE Vital Signs Date Name Value [...] Measured Encounters Code Encounter Date Provider Facility CPT-74078 Level 3 Est. Patient 12:46:20 CDT Juan Ramon Landeros MD [facility] CPT-25243 Level 3 Est. Patient 23:23:09 CDT Juan Ramon Landeros MD [facility] CPT-37520 Level 3 New Patient 14:12:38 CDT Juan Ramon Landeros MD [facility] Procedures Code Procedure Name Date Entry Date Standard Description CPT-48192 Dil ureth strict sound/dilator M int 12:46:21 CDT 06/02 CPT-62522 Insert temp indwelling bld cath comp 12:46:21 CDT 06/02 CPT-32452 Cystoscopy 12:46:21 CDT CPT-21699 Bladder Scan 14:12:38 CDT
--- OUTSIDE RECORDS SUMMARY | 2018-10-21 20:21 | XMS REPORT | Continuity of Care Document ---
Author Author [facility] Organization [facility] Address Unknown Phone Unavailable Allergies There is no data. Medications There is no data. Problems There is no data. Procedures There is no data. Results There is no data. Encounters ACCT No. Visit Date/Time Discharge Status Pt. Type Provider Facility Loc./Unit Complaint [id number] 06/30/2018 11:08:01 [facility] Unknown
--- OUTSIDE RECORDS SUMMARY | 2018-10-21 20:21 | XMS REPORT | Clinical Summary ---
Author Author Admin, QIE Organization [facility] Address Unknown Phone Unavailable Allergies, Adverse [...] 1 po q6hr PRN Nausea ONDANSETRON HCL [id number] Active Juan Ramon Landeros MD Active ZINC 50 MG ORAL TABS 1 tab by mouth daily ZINC 20938842697 Active Juan Ramon Landeros MD Active XARELTO 20 MG ORAL TABS 1 tab by mouth daily RIVAROXABAN 12693639853 Active JuanR amon Landeros MD Active XALATAN 0.005 % SOLUTION 1 drop in both eyes LATANOPROST 15155847265 Active Juan Ramon Landeros MD Active VITAMIN C PLUS 500 MG ORAL TABS 1 tab by mouth daily BIOFLAVONOID PRODUCTS 02155248520 Active Juan Ramon Landeros MD Active FLOMAX 0.4 MG CAPS 1 Daily TAMSULOSIN HCL 32503227895 Active Juan Ramon Landeros MD Active SENOKOT 8.6 MG ORAL TABS 1 tab by mouth twice daily SENNOSIDES 13866761257 Active Juan Ramon Landeros MD Active JUAN-E.P.A. 200-300 MG ORAL CAPS 1 tab by mouth twice daily OMEGA-3 FATTY ACIDS 96177714997 Active Juan Ramon Landeros MD Active BENICAR 5 MG ORAL TABS 1 tab by mouth daily OLMESARTAN MEDOXOMIL 58150848531 Active Juan Ramon Landeros MD Active LOPRESSOR 50 MG TAB 1 tab by mouth twice daily METOPROLOL TARTRATE 71171813523 Active Juan Ramon Landeros MD Active KAVA KAVA 200 MG ORAL CAPS 1 cap by mouth twice daily prn anxiety KAVA (PIPER METHYSTICUM) 56862509376 Active Juan Ramon Landeros MD Active CARDIZEM CD 120 MG CAPCR24 1 tab by mouth daily DILTIAZEM HCL COATED BEADS 89155781563 Active Juan Ramon Landeros MD Active BISCOLAX 10 MG RECTAL SUPP 1 suppository rectally every 24 hours prn constipation BISACODYL 92718491359 Active Juan Ramon Landeros MD Active BENEFIBER PLUS CALCIUM ORAL POWD 1 tablespoon by mouth daily WHEAT DEXTRIN-CALCIUM 88789920938 Active Juan Ramon Landeros MD Active ACETAMINOPHEN 325 MG ORAL TABS 2 tabs by mouth every 4 hours prn ACETAMINOPHEN 59621265995 Active Juan Ramon Landeros MD Active Advance Directives Directive Description Start Date DURABLE POWER OF HYPERION DEVELOPER FOR HEALTHCARE Vital Signs Date Name Value [...] Measured Encounters Code Encounter Date Provider Facility CPT-74746 Level 3 Est. Patient 12:46:20 CDT Juan Ramon Landeros MD [facility] CPT-73343 Level 3 Est. Patient 23:23:09 CDT Juan Ramon Landeros MD [facility] CPT-42842 Level 3 New Patient 14:12:38 CDT Juan Ramon Landeros MD [facility] Procedures Code Procedure Name Date Entry Date Standard Description CPT-87908 Dil ureth strict sound/dilator M int 12:46:21 CDT 06/02 CPT-51172 Insert temp indwelling bld cath comp 12:46:21 CDT 06/02 CPT-63328 Cystoscopy 12:46:21 CDT CPT-66569 Bladder Scan 14:12:38 CDT
[2018-10-21] MEDS: LACTATED RINGERS 1,000 ML IV SCH (21:30)
[2018-10-21] MEDS: DILTIAZEM INJECTION 125 MG in NS (IVPB) 100 ML IV SCH (21:30)
[2018-10-22] VITALS (44 sets, daily range): BP systolic 96–144; BP diastolic 51–94
[2018-10-22 03:48] LABS: BASOPHILS % (AUTO) 0 % (0-10); EOSINOPHILS # (AUTO) 0.1 10^3/uL (0.0-0.3); EOSINOPHILS % (AUTO) 3 % (0-10); HEMATOCRIT 35 % (40-54); HEMOGLOBIN 11.4 G/DL (13.3-17.7); LYMPHOCYTES # (AUTO) 1.4 X 10^3 (1.0-4.0); LYMPHOCYTES % (AUTO) 32 % (12-44); MEAN CORPUSCULAR HEMOGLOBIN 31 PG (25-34); MEAN CORPUSCULAR HGB CONC 33 G/DL (32-36); MEAN CORPUSCULAR VOLUME 96 FL (80-99); MONOCYTES # (AUTO) 0.6 X 10^3 (0.0-1.0); MONOCYTES % (AUTO) 13 % (0-12); NEUTROPHILS # (AUTO) 2.3 X 10^3 (1.8-7.8); NEUTROPHILS % (AUTO) 53 % (42-75); PLATELET COUNT 199 10^3/uL (130-400); RED BLOOD COUNT 3.64 10^6/uL (4.35-5.85); RED CELL DISTRIBUTION WIDTH 14.9 % (10.0-14.5); WHITE BLOOD COUNT 4.3 10^3/uL (4.3-11.0)
[2018-10-22 04:05] LABS: BUN/CREATININE RATIO 14; CALCIUM 9.4 MG/DL (8.5-10.1); CARBON DIOXIDE 25 MMOL/L (21-32); CHLORIDE 101 MMOL/L (98-107); CREATININE SERUM 0.81 MG/DL (0.60-1.30); GFR ESTIMATED > 60; GLUCOSE 119 MG/DL (70-105); MAGNESIUM 1.8 MG/DL (1.8-2.4); PHOSPHORUS 3.6 MG/DL (2.3-4.7); POTASSIUM 4.2 MMOL/L (3.6-5.0); SODIUM 137 MMOL/L (135-145)
--- NOTE | 2018-10-22 06:17 | Pulmonary Consultation ---
History of Present Illness History of Present Illness Date of Consultation 10/22/18 06:12 Time Seen by Provider: 06:12 Date of Admission History of Present Illness 83yo presented as direct admit from [facility] secondary to afib RVR Allergies and Home Medications Allergies Coded Allergies: No Known Allergies (Verified Allergy, Unknown, 10/21/18) Past Ysnlevp-Nejyxj-Cxsbnb Hx Patient Social History Alcohol Use: Denies Use Recreational Drug Use: No Smoking Status: Never a Smoker Recent Foreign Travel: No Contact w/Someone Who Travel: No Recent Infectious Disease Expo: No Past Medical History Surgeries: Yes Respiratory: Yes Sleep Apnea Currently Using CPAP: No Cardiac: Yes (thromboembolism) Neurological: Yes Genitourinary: Yes (suprapubic catheter) UTI-Chronic Gastrointestinal: No Musculoskeletal: Yes Contracture Endocrine: No HEENT: Yes Glaucoma Loss of Vision: Denies Hearing Impairment: Denies Cancer: No Psychosocial: No Integumentary: No Blood Disorders: No Sepsis Event Evaluation Height, Weight, BMI Height: 5'10.00" Weight: 217lbs. 0.0oz. 98.798847hs; 31.1 BMI Method: Exam Exam Vital Signs Date Time Temp Pulse Resp B/P (MAP) Pulse Ox O2 Delivery O2 Flow Rate FiO2 10/22/18 05:30 71 16 122/65 (84) 99 Nasal Cannula 3.00 10/22/18 05:15 70 17 128/61 (83) 97 Nasal Cannula 3.00 10/22/18 05:00 75 18 109/60 (76) Nasal Cannula 3.00 10/22/18 04:45 68 23 102/56 (71) 94 Nasal Cannula 3.00 10/22/18 04:30 72 18 116/66 (83) 99 Nasal Cannula 3.00 10/22/18 04:15 67 19 113/64 (80) 100 Nasal Cannula 3.00 10/22/18 04:00 98 Nasal Cannula 3.00 10/22/18 04:00 67 21 111/63 (79) 99 Nasal Cannula 3.00 10/22/18 03:45 71 17 116/61 (79) 99 Nasal Cannula 3.00 10/22/18 03:30 72 26 99 Nasal Cannula 3.00 10/22/18 03:15 79 27 121/94 (103) 99 Nasal Cannula 3.00 12/3/18 03:00 73 24 112/56 (74) 96 Nasal Cannula 3.00 18 02:45 68 22 104/57 (73) 99 Nasal Cannula 3.00 18 02:30 70 17 114/62 (79) 99 Nasal Cannula 3.00 18 02:15 65 21 96/51 (66) 98 Nasal Cannula 3.00 18 02:00 69 18 103/53 (70) 99 Nasal Cannula 3.00 18 01:45 71 21 111/59 (76) 100 Nasal Cannula 3.00 18 01:30 67 17 96/51 (66) Nasal Cannula 3.00 18 01:15 66 17 103/57 (72) 99 Nasal Cannula 3.00 10/22/18 01:04 69 10/22/18 01:00 67 19 104/56 (72) 100 Nasal Cannula 3.00 10/22/18 00:45 69 20 105/57 (73) 100 Nasal Cannula 3.00 10/22/18 00:30 68 10 108/53 (71) Room Air 18 00:15 69 10 100/53 (69) 95 Room Air 18 00:00 98 Nasal Cannula 3.00 10/22/18 00:00 68 19 98/57 (71) 95 Room Air 18 23:45 74 27 100/52 (68) 95 Room Air 18 23:30 70 24 94/56 (69) 94 Room Air 18 23:15 71 29 100/57 (71) 95 Room Air 18 23:00 66 20 104/58 (73) 95 Room Air 122/18 22:45 68 17 100/58 (72) 90 Room Air 218 22:30 60 28 103/57 (72) 91 Room Air 12218 22:15 71 20 106/62 (77) 93 Room Air 12218 22:00 71 23 103/57 (72) 95 Room Air 12/2/18 21:45 73 24 103/60 (74) 94 Room Air 122/18 21:30 72 23 101/57 (72) 95 Room Air 122/18 21:15 71 22 100/60 (73) 94 Room Air 122/18 21:00 75 11 102/60 (74) 94 Room Air 10/21/18 20:51 78 10/21/18 20:45 146 14 90/63 (72) 93 Room Air 10/21/18 20:30 147 21 90/63 (72) 93 Room Air 10/21/18 20:15 97.3 149 23 102/67 (79) 94 Room Air 10/21/18 20:14 149 10/21/18 20:00 98 Room Air 3.00 10/21/18 19:50 97 Room Air I & O 10/22/18 07:00 Intake Total 400 ml Output Total 650 ml Balance -250 ml Height & Weight Height: 5'10.00" Weight: 217lbs. 0.0oz. 98.129897iy; 31.1 BMI Method: General Appearance: No Apparent Distress Results Lab Laboratory Tests 10/22/18 03:38 Assessment/Plan Assessment/Plan Afib RVR - now sinus -Currently on cardizem gtt -cardiology following NSTEMI -Cardiology following Hypoxia -oxygen as needed JEREMY BENOIT DO Oct 22, 2018 06:17
[2018-10-22] MEDS: KCL 20 MEQ TAB (K-DUR) PO SCH (06:31)
[2018-10-22] MEDS: LACTATED RINGERS 1,000 ML IV SCH (06:31)
[2018-10-22] MEDS: POTASSIUM CL 10MEQ/50ML IVPB 50 ML IV SCH (06:32)
[2018-10-22] MEDS: MAGNESIUM 1 GM/100 ML IVPB 100 ML IV SCH (06:32)
--- NOTE | 2018-10-22 07:48 | Diagnostic Imaging Report ---
INDICATION: Dyspnea. COMPARISON: None available. FINDINGS: Asymmetric elevation of the right hemidiaphragm is present. Small left pleural effusion is noted. Left basilar patchy pulmonary opacities are also seen. Heart is enlarged status post CABG. Potential trace right pleural effusion. IMPRESSION: 1. Bibasilar pulmonary opacities are present with small left and potential trace right pleural effusions. Imaging features may relate to congestive heart failure. Alternatively, subsegmental atelectasis with pleural effusions could also give this appearance. Dictated by: Dictated on workstation # [id number]
--- NOTE | 2018-10-22 08:53 | History & Physical-Hospitalist ---
History of Present Illness HPI/Chief Complaint Pt is an 83yoCM with a PMH of a fib, CVA with left sided residual weakness, HTN , and SPT who presented to the ER due to rapid heart rate. His states that on 09/28 his metoprolol was stopped by his PCP and since then he has been having "episodes" of not feeling well with nausea and fast heart rate. His Cardizem dose was not increased. He also had his Xarelto dose decreased in the past couple of months. On arrival to the ER in [facility] he was found to be in a-fib with RVR and started on Cardizem gtt. He was also noted to have an elevated troponin and was transferred here for ICU level care for carizem gtt and cardiology evaluation. He states he is feeling better today. He denies any complaints including SOB, CP, or heart racing today. Source: patient Date Seen 10/22/18 Time Seen by a Provider: 08:00 Attending Physician Katie Villalta MD PCP No,Local Physician Referring Physician Date of Admission Oct 21, 2018 at 19:50 Home Medications & Allergies Home Medications Reviewed patient Home Medication Reconciliation performed by pharmacy medication reconciliations audiology technician and/or nursing. Patients Allergies have been reviewed. Allergies Allergies Coded Allergies No Known Allergies (Verified Allergy, Unknown, 10/21/18) Past Kwepjge-Sdoboy-Rfbpmu Hx Past Med/Social Hx: Reviewed and Corrections made Patient Social History Marrital Status: Employed/Student: retired Alcohol Use: Denies Use Recreational Drug Use: No Smoking Status: Never a Smoker Physical Abuse Screen: No Sexual Abuse: No Recent Foreign Travel: No Contact w/other who traveled: No Recent Infectious Disease Expo: No Past Medical History Surgeries: Cardiac, CABG IVC filter placed in 2011 Currently Using CPAP: No Cardiac: Coronary Artery Disease, High Cholesterol, Hypertension Neurological: Stroke Genitourinary: UTI-Chronic Musculoskeletal: Contracture HEENT: Glaucoma Loss of Vision: Denies Hearing Impairment: Denies History of Blood Disorders: No Family History Reviewed Nursing Family Hx No Pertinent Family Hx Review of Systems Constitutional: No chills, No fever EENTM: No blurred vision, No double vision, No nose congestion, No throat pain Respiratory: No cough, No dyspnea on exertion, No short of breath Cardiovascular: edema, palpitations Gastrointestinal: No abdominal pain, No constipation, No diarrhea, No nausea, No vomiting Genitourinary: No dysuria, No frequency Musculoskeletal: No joint pain, No muscle pain Skin: No lesions, No rash Psychiatric/Neurological: Denies Headache, Denies Numbness, Denies Tingling Physical Exam Physical Exam Vital Signs Vital Signs - First Documented 10/21/18 10/21/18 10/21/18 10/21/18 19:50 20:00 20:14 20:15 Temp 97.3 Pulse 149 Resp 23 B/P (MAP) 102/67 (79) Pulse Ox 97 O2 Delivery Room Air O2 Flow Rate 3.00 Capillary Refill : Less Than 3 Seconds Height, Weight, BMI Height: 5'10.00" Weight: 215lbs. 0.0oz. 97.506602za; 31.1 BMI Method: General Appearance: No Apparent Distress, Chronically ill Respiratory: Lungs Clear, No Respiratory Distress Cardiovascular: No Murmur, Irregularly Irregular Gastrointestinal: Normal Bowel Sounds, Non Tender, Soft Neurologic/Psychiatric: Alert, Oriented x3, Motor Weakness (left sided- chronic ) Results Results/Procedures Labs Laboratory Tests 10/22/18 03:38 10/23/18 03:35 Patient resulted labs reviewed. Assessment/Plan Admission Diagnosis a-fib with RVR Admission Status: Inpatient Order (span 2 midnights) Reason for Inpatient Admission: cardizem gtt, cardiology evaluation Diagnosis/Problems Diagnosis/Problems (1) Atrial fibrillation with RVR Assessment & Plan: Currently on cardizem Cardiology consulted Resume Xarelto Monitor on Tele Echo (2) Elevated troponin Assessment & Plan: Likely due to RVR Cardiology consulted, appreciate recs (3) CAD (coronary artery disease) Status: Chronic Assessment & Plan: s/p 6 vessel CABG No filer helper as an outpatient Cardiology consulted, appreciate recs Qualifiers: Coronary Disease-Associated Artery/Lesion type: bypass graft [place] vs. transplanted heart: [place] heart Associated angina: without angina Qualified Codes: I25.810 - Atherosclerosis of coronary artery bypass graft(s) without angina pectoris (4) Essential (primary) hypertension Assessment & Plan: BP well controlled Trend (5) CVA, old, hemiparesis Assessment & Plan: PT/OT consulted Clinical Quality Measures DVT/VTE Risk/Contraindication: Risk Factor Score Per Nursin RFS Level Per Nursing on Admit: 4+=Very High KATIE VILLALTA MD Oct 22, 2018 08:53
--- NOTE | 2018-10-22 09:14 | Consultation-Cardiology ---
HPI-Cardiology Cardiology Consultation Date of Consultation 10/22/18 Date of Admission Time Seen by Provider: 09:08 Indication: Acute myocardial infarction HPI 83 years old gentleman with history of coronary artery disease, CABG 6 done in 2003, multiple strokes with left hemiplegia and right-sided weakness. Paroxysmal atrial fibrillation, went to atrial fibrillation with rapid ventricular response yesterday and went to [facility], he felt some palpitation but did not have any chest pain or shortness of breath. No syncope or near syncopal episode. Patient was started on Cardizem drip and transferred to our hospital, he converted to sinus rhythm and is currently in sinus rhythm. I had a long discussion with the patient and his family discussed all treatment option, patient and his family are requesting conservative management. He is currently feeling better. Denied any active pain. No palpitation. No syncope or near syncopal episodes Home Medications & Allergies Allergies: Coded Allergies: No Known Allergies (Verified Allergy, Unknown, 10/21/18) Home Medication List Reviewed: Yes WCM-Enswov-Llwtkr Hx Patient Social History Marital Status: Employed/Student: retired Alcohol Use: Denies Use Recreational Drug Use: No Smoking Status: Never a Smoker Recent Foreign Travel: No Recent Infectious Disease Expo: No Physical Abuse Screen: No Sexual Abuse: No Past Medical History As medical history as described below Review of Systems Constitutional: see HPI, malaise, weakness EENTM: see HPI, no symptoms reported Respiratory: see HPI; No cough; dyspnea on exertion; No hemoptysis, No orthopnea, No phlegm, No short of breath, No stridor, No wheezing, No other Cardiovascular: see HPI; No chest pain; edema; No Hx of Intervention; palpitations; No syncope, No vascular heart diseas, No other Gastrointestinal: no symptoms reported, see HPI Genitourinary: no symptoms reported, see HPI Musculoskeletal: see HPI, joint pain, muscle weakness Skin: no symptoms reported, see HPI Psychiatric/Neurological: No Symptoms Reported, See HPI Reviewed Test Results Reviewed Test Results Lab Laboratory Tests Test 10/22/18 03:38 Range/Units White Blood Count 4.3 4.3-11.0 10^3/uL Red Blood Count 3.64 L 4.35-5.85 10^6/uL Hemoglobin 11.4 L 13.3-17.7 G/DL Hematocrit 35 L 40-54 % Mean Corpuscular Volume 96 80-99 FL Mean Corpuscular Hemoglobin 31 25-34 PG Mean Corpuscular Hemoglobin Concent 33 32-36 G/DL Red Cell Distribution Width 14.9 H 10.0-14.5 % Platelet Count 199 130-400 10^3/uL Mean Platelet Volume 10.0 7.4-10.4 FL Neutrophils (%) (Auto) 53 42-75 % Lymphocytes (%) (Auto) 32 12-44 % Monocytes (%) (Auto) 13 H 0-12 % Eosinophils (%) (Auto) 3 0-10 % Basophils (%) (Auto) 0 0-10 % Neutrophils # (Auto) 2.3 1.8-7.8 X 10^3 Lymphocytes # (Auto) 1.4 1.0-4.0 X 10^3 Monocytes # (Auto) 0.6 0.0-1.0 X 10^3 Eosinophils # (Auto) 0.1 0.0-0.3 10^3/uL Basophils # (Auto) 0.0 0.0-0.1 10^3/uL Sodium Level 137 135-145 MMOL/L Potassium Level 4.2 3.6-5.0 MMOL/L Chloride Level 101 98-107 MMOL/L Carbon Dioxide Level 25 21-32 MMOL/L Anion Gap 11 5-14 MMOL/L Blood Urea Nitrogen 11 7-18 MG/DL Creatinine 0.81 0.60-1.30 MG/DL Estimat Glomerular Filtration Rate > 60 BUN/Creatinine Ratio 14 Glucose Level 119 H 70-105 MG/DL Calcium Level 9.4 8.5-10.1 MG/DL Phosphorus Level 3.6 2.3-4.7 MG/DL Magnesium Level 1.8 1.8-2.4 MG/DL Troponin I 0.45 *H <0.30 NG/ML Physical Exam Vital Signs Vital Signs - First Documented 10/21/18 10/21/18 10/21/18 10/21/18 19:50 20:00 20:14 20:15 Temp 97.3 Pulse 149 Resp 23 B/P (MAP) 102/67 (79) Pulse Ox 97 O2 Delivery Room Air O2 Flow Rate 3.00 Capillary Refill : Less Than 3 Seconds Height, Weight, BMI Height: 5'10.00" Weight: 215lbs. 0.0oz. 97.372048ye; 31.1 BMI Method: General Appearance: No Apparent Distress, WD/WN, Moderate Distress Eyes: Bilateral Eye Normal Inspection, Bilateral Eye PERRL, Bilateral Eye EOMI HEENT: PERRL/EOMI, TMs Normal, Normal ENT Inspection, Pharynx Normal Neck: Full Range of Motion, Normal Inspection, Non Tender, Supple, Carotid Bruit Respiratory: Chest Non Tender, Lungs Clear, Normal Breath Sounds, No Accessory Muscle Use, No Respiratory Distress Cardiovascular: Regular Rate, Rhythm, No Edema, No Gallop, No JVD, Normal Peripheral Pulses, Systolic Murmur Gastrointestinal: Normal Bowel Sounds, No Organomegaly, No Pulsatile Mass, Non Tender, Soft Back: Normal Inspection, No CVA Tenderness, No Vertebral Tenderness Extremity: Normal Capillary Refill, Normal Inspection, Normal Range of Motion, Non Tender, No Calf Tenderness, Pedal Edema (Mild edema) Neurologic/Psychiatric: Alert, Oriented x3, Motor Weakness (Left hemiplegia with right sided weakness) Skin: Normal Color, Warm/Dry Lymphatic: No Adenopathy A/P-Cardiology Admission Diagnosis Non-ST elevation myocardial infarction Paroxysmal atrial fibrillation Coronary artery disease Hypertension CVA Assessment/Plan Acute non-ST elevation myocardial infarction, underlying coronary artery disease , discussed in length management per recommended cardiac catheterization, family and patient requesting conservative management. I will add aspirin to his medication and restart Xarelto, starting statin Coronary artery disease history of CABG 6 in 2003 no follow-up done since then. Discussed the possibility of progression of his disease, occlusion of some of his bypass graft. Family and patient requested conservative management , no cardiac catheterization. Paroxysmal atrial fibrillation, had multiple episodes since 2011. Maintained on Xarelto. Will continue monitoring, currently back in sinus rhythm. History of multiple CVAs resulted in left hemiplegia and right-sided weakness. No recent stroke. History of DVT, IVC filter, maintained on Xarelto History of fall with rib fracture in 2012, multiple injury from falling. Hypertension, controlled on current medication. I will review his home medication. Questionable hyperlipidemia, I will evaluate lipid profile, had a long discussion with the patient and his . He will require to be on statin, were hesitant to use statin, reported that he was intolerant to the medication in the past and he was able to achieve adequate control of his lipids with diet and red rice yeast Clinical Quality Measures DVT/VTE Risk/Contraindication: Risk Factor Score Per Nursin RFS Level Per Nursing on Admit: 4+=Very High TYLOR MAX MD Oct 22, 2018 09:14
[2018-10-22] MEDS ORDERED: ASPIRIN E.C. 81 MG (ECOTRIN) TAB PO NR (09:15)
[2018-10-22 09:47] LABS: CHOLESTEROL 204 MG/DL (< 200); HDL CHOLESTEROL 40 MG/DL (40-60); TRIGLYCERIDES 129 MG/DL (<150); VLDL CHOLESTEROL 26 MG/DL (5-40)
[2018-10-22] MEDS ORDERED: LATA2.5D5 OU (10:09)
[2018-10-22] MEDS ORDERED: RIVA10TA PO (10:09)
[2018-10-22] MEDS ORDERED: TIMO5DRO31 OD (10:09)
[2018-10-22] MEDS ORDERED: SIME80TA57 PO (10:09)
[2018-10-22] MEDS ORDERED: DILT-27 PO (10:09)
[2018-10-22] MEDS ORDERED: METO50TA15 PO (10:09)
[2018-10-22] MEDS ORDERED: OLME5TAB6 PO (10:09)
[2018-10-22] MEDS ORDERED: SENN-40 PO (10:21)
[2018-10-22] MEDS ORDERED: BODY AND VISION PO (10:21)
[2018-10-22] MEDS ORDERED: CRAN500T2 PO (10:21)
[2018-10-22] MEDS ORDERED: ZINC50TA4 PO (10:21)
[2018-10-22] MEDS ORDERED: WHEA1POW6 PO (10:21)
[2018-10-22] MEDS ORDERED: ASCO-281 PO (10:21)
[2018-10-22] MEDS ORDERED: MULT-166 PO (10:21)
[2018-10-22] MEDS ORDERED: S-AD200T PO (10:21)
[2018-10-22] MEDS ORDERED: [UNRECOGNIZED DRUG - OTHER] PO (10:21)
[2018-10-22] MEDS ORDERED: BISA10SU58 RC (10:21)
[2018-10-22] MEDS ORDERED: LACT1CAP72 PO (10:21)
[2018-10-22] MEDS ORDERED: ASTA4CAP PO (10:21)
[2018-10-22] MEDS ORDERED: ACET325T38 PO (10:21)
[2018-10-22] MEDS ORDERED: [UNRECOGNIZED DRUG - OTHER] PO (10:21)
[2018-10-22] MEDS ORDERED: GLUT25PO PO (10:21)
[2018-10-22] MEDS ORDERED: CHOL10007 PO (10:21)
[2018-10-22] MEDS ORDERED: [UNRECOGNIZED DRUG - OTHER] PO (10:24)
[2018-10-22] MEDS ORDERED: MINERAL PO (10:24)
[2018-10-22] MEDS: DILTIAZEM INJECTION 125 MG in NS (IVPB) 100 ML IV SCH (10:26)
[2018-10-22] MEDS ORDERED: BISACODYL 10 MG SUPP (DULCOLAX) PR ONE (10:30)
[2018-10-22] MEDS ORDERED: FLEET ENEMA ADULT 1 EA BTL PR PRN (10:30)
[2018-10-22] MEDS ORDERED: BISACODYL 10 MG SUPP (DULCOLAX) PR NR (11:42)
--- NOTE | 2018-10-22 13:29 | Physical Therapy Evaluation ---
PT Evaluation-General Medical Diagnosis Admission Date Oct 21, 2018 at 19:50 Medical Diagnosis: Elevated Troponin Onset Date: Oct 21, 2018 Therapy Diagnosis Therapy Diagnosis: General weakness, Left side Hemiphersis Height/Weight Height (Feet): 5 Height (Inches): 10.00 Weight (Pounds): 215 Weight (Ounces): 0.0 Precautions Precautions/Isolations: Fall Prevention, Standard Precautions Weight Bear Status Right Lower Extremity: Right Weight Bearing/Tolerated Left Lower Extremity: Left Weight Bearing/Tolerated Referral Physician: Daniela Villalta MD Reason for Referral: Evaluation/Treatment Medical History Pertinent Medical History: Atrial Fib, CABG, CAD, HTN Current History Pt brought into to ER by for rapid heart rate. Reviewed History: Yes Social History Home: Assisted Living Current Living Status: Alone Entry Into Home: Level Entry PT Steps Into Home: 0 PT Steps Inside Home: 0 Prior/Core FIM Prior Level of Function Therapy Code Descriptions/Definitions Functional [place] Measure: 0=Not Assessed/NA 4=Minimal Assistance 1=Total Assistance 5=Supervision or Setup 2=Maximal Assistance 6=Modified [place] 3=Moderate Assistance 7=Complete [place] Therapy Quality Codes: 6 Independent with activity with or without an assistive device 5 Patient requires set up or clean up by helper. Patient completes activity by themselves 4 Supervision or touching assist (CGA). Cullen provide cues , steadying assist 3 The helper provides less than half the effort to complete the activity 2 The helper provides more than half the effort to complete the activity 1 Dependent. The helper does all the effort to complete an activity 7 Patient refused to complete or attempt activity 9 The patient did not perform the activity before the current illness or injury 88 Not attempted due to Medical conditions or safety concerns Functional Abilities and Goals: Independent: Patient completed the activities by him/herself, with or without an assistive device, with no assistance from a helper. Needed Some Help: Patient needed partial assistance from another person to complete activities. Dependent: A helper completed the activities for the patient. Unknown: Not Applicable: Bed Mobility: 4 Transfers (B,C,W/C) (FIM): 4 Gait: 1 Indoor Mobility (Ambulation): Needed Some Help Stairs: Needed Some Help Prior Device Use: quad base cane PT Evaluation-Current Subjective Patient was finishing on commode when PT arrived. Pt agreed to be transferred back to bed and proceed with PT evaluation. Pain Numeric Pain Scale: 0-No Pain Location: No Pain Reported Objective Patient Orientation: Normal For Age Problem Solving: Poor Attachments: SCD's, Oxygen, Rogers Catheter, IV ROM/Strength ROM Upper Extremities WNL ROM Lower Extremities WNL Strength Upper Extremities R WNL L Flaccid due to previous stroke Strength Lower Extremities R 4+/5 gross motor strength L impaired due to previous stroke Integumentary/Posture Bowel Incontinence: No Bladder Incontinence: Rogers Cath Neuromuscular (Tone, Coordination, Reflexes) flaccid left side Sensory Vision: Wears Glasses Hearing: Functional Sensation Right Upper Extremit: Intact Sensation Left Upper Extremity: Intact Sensation Right Lower Extremit: Intact Sensation Left Lower Extremity: Intact Transfers Therapy Code Descriptions/Definitions Functional [place] Measure: 0=Not Assessed/NA 4=Minimal Assistance 1=Total Assistance 5=Supervision or Setup 2=Maximal Assistance 6=Modified [place] 3=Moderate Assistance 7=Complete [place] Transfers (B, C, W/C) (FIM): 3 Scootin Rollin Supine to/from Sit: 3 Sit to/from Stand: 3 Gait Mode of Locomotion: Walk Anticipated Mode of Locomotion: Walk Gait (FIM): 1 Distance: 5' Gait Level of Assist: 3 Gait Persons Needed: 1 Gait Assistive Device: None Comments/Gait Description Patient primarily uses a quad based cane for ambulation Balance Sitting Static: Good Sitting Dynamic: Good Standing Static: Fair Standing Dynamic: Fair Assessment/Needs Pt required Mod A in sit/stand when transferring from commode to bed. Pt was able to step and walk and position himself prior to sitting with the left knee blocked and cueing from therapist. Patient required the assistance of two to transfer from sitting EOB to supine. Patient uses a jointed AFO on left foot currently during ambulation. He will continue therapy daily to maintain current level of function. Rehab Potential: Fair PT Correction Goals Correction Goals PT Electronic Repair Troubleshooter Goals Time Frame: Oct 29, 2018 Transfers (B,C,W/C) (FIM): 4 Gait (FIM): 2 Gait distance (FIM): 9=981-61 ft Distance: 50' Gait Level of Assist: 4 Gait Assistive Device: Cane Large Base Quad, Cane Small Base Quad PT Plan Problem List Problem List: Activity Tolerance, Functional Strength, Safety, Balance, Gait, Transfer, Bed Mobility, ROM Treatment/Plan Treatment Plan: Continue Plan of Care Treatment Plan: Bed Mobility, Education, Functional Activity Fatmata, Functional Strength, Gait, Safety, Therapeutic Exercise, Transfers Treatment Duration: Oct 29, 2018 Frequency: 6 times per week Estimated Hrs Per Day: .25 hour per day Patient and/or Family Agrees t: Yes Discharge Recommendations Therapy D/C Recommendations: Assisted Living Time/GCodes Time In: 1300 Time Out: 1315 Total Billed Treatment Time: 15 Total Billed Treatment 1 Visit EVM - 15' RAPHAEL ESTRELLA PT Oct 22, 2018 13:29
[2018-10-22] MEDS ORDERED: BISACODYL 10 MG SUPP (DULCOLAX) RC PRN (14:15)
[2018-10-22] MEDS ORDERED: ACETAMINOPHEN 325 MG TABLET PO PRN (14:15)
[2018-10-22] MEDS ORDERED: DILTIAZEM 120 MG (CARDIZEM CD) CAP PO NR (15:45)
[2018-10-22] MEDS: LACTOBACILLUS ACIDOPHILUS (PROBIOTIC) CAPSULE PO SCH (15:45)
[2018-10-22] MEDS ORDERED: LACTOBACILLUS COMBO NO 10 PO SCH (16:00)
--- NOTE | 2018-10-22 16:26 | Occupational Therapy Eval ---
OT Evaluation-General/PLF Medical Diagnosis Admission Date Oct 21, 2018 at 19:50 Medical Diagnosis: Elevated Troponin/Acute ME Onset Date: Oct 21, 2018 Therapy Diagnosis Therapy Diagnosis: Weakness Height/Weight Height (Feet): 5 Height (Inches): 10.00 Weight (Pounds): 215 Weight (Ounces): 0.0 Precautions Precautions/Isolations: Fall Prevention, Standard Precautions Weight Bear Status Weight Bearing Restriction: Weight Bearing/Tolerated Referral Physician: Daniela Villalta MD Referral Reason: Activity Tolerance, Self Care, Evaluation/Treatment Medical History Pertinent Medical History: Atrial Fib, CABG, CAD, CVA, HTN Additional Medical History Left sided mariusz, Chronic UTI Current History Pt. had a CVA in 1989. Has left sided weakness and increased muscle tone. Lives in assisted living and spouse lives separately in their home. Reviewed History: Yes Social History Home: Assisted Living Current Living Status: Caregiver support. Entry Into Home: Level Entry Steps Into Home: 0 Steps Inside Home: 0 ADL-Prior Level of Function Therapy Code Descriptions/Definitions Functional [place] Measure: 0=Not Assessed/NA 4=Minimal Assistance 1=Total Assistance 5=Supervision or Setup 2=Maximal Assistance 6=Modified [place] 3=Moderate Assistance 7=Complete [place] Therapy Quality Codes: 6 Independent with activity with or without an assistive device 5 Patient requires set up or clean up by helper. Patient completes activity by themselves 4 Supervision or touching assist (CGA). [place] provide cues , steadying assist 3 The helper provides less than half the effort to complete the activity 2 The helper provides more than half the effort to complete the activity 1 Dependent. The helper does all the effort to complete an activity 7 Patient refused to complete or attempt activity 9 The patient did not perform the activity before the current illness or injury 88 Not attempted due to Medical conditions or safety concerns Functional Abilities and Goals: Independent: Patient completed the activities by him/herself, with or without an assistive device, with no assistance from a helper. Needed Some Help: Patient needed partial assistance from another person to complete activities. Dependent: A helper completed the activities for the patient. Unknown: Not Applicable: ADL PLOF Comments Pt. states that he has assistance with bathing and dressing. States that he uses a quad cane to ambulate to dining area and bathroom, but that he has to be with someone to ambulate due to being at risk for falls. Pt. can feed himself most of the time, unless the food is more difficult such as salad. Self Care: Needed Some Help Functional Cognition: Independent DME/Equipment: Bath Chair, Shower DME/Equipment Comments Pt. has quad cane and wheelchair. OT Current Status Subjective No pain reported. Appearance Pt. in bed in ICU. Alert and oriented. Mental Status/Objective Patient Orientation: Person, Place, Time, Situation Attachments: Rogers Catheter, IV, Oxygen, Telemetry Current Glasses/Contacts: Yes Hand Dominance: Right Upper Extremity ROM WFL on right side. Very little active movement in left shoulder. No active movement in left arm. Increased tone and spasticity with movement of left UE. Upper Extremity Strength 3+/5 right UE. No active movement in left UE. ADL-Treatment Therapy Code Descriptions/Definitions Functional [place] Measure: 0=Not Assessed/NA 4=Minimal Assistance 1=Total Assistance 5=Supervision or Setup 2=Maximal Assistance 6=Modified [place] 3=Moderate Assistance 7=Complete [place] Therapy Quality Codes: 6 Independent with activity with or without an assistive device 5 Patient requires set up or clean up by helper. Patient completes activity by themselves 4 Supervision or touching assist (CGA). [place] provide cues , steadying assist 3 The helper provides less than half the effort to complete the activity 2 The helper provides more than half the effort to complete the activity 1 Dependent. The helper does all the effort to complete an activity 7 Patient refused to complete or attempt activity 9 The patient did not perform the activity before the current illness or injury 88 Not attempted due to Medical conditions or safety concerns Eating (FIM): 4 (Pt. reported that he did need a little help today due to eating a salad. States that his spouse assisted him with this.) Pt. reports that he has just returned to bed from working with PT. Declines all OOB activity at this time. OT did speak with him in depth regarding current status and OT goals. OT tested left UE strength/ROM/movement. Pt. reports that he has had left sided weakness since his CVA in 1989. Pt. verbalizes want to increase overall endurance and strength, but states that he is "not up to it" at this time. Pt. reports that he has great difficulty transferring from supine-sit, but once he is sitting, requires only minimal assistance. Please see PT note for mobility scores at this time. Education OT Patient Education: Correct positioning, Progress toward Goal/Update tx plan , Purpose of tx/functional activities, Reviewed precautions, Rehab process Teaching Recipient: Patient Teaching Methods: Discussion Response to Teaching: Verbalize Understanding OT Short Term Goals Short Term Goals Time Frame: Nov 05, 2018 Eating(FIM): 5 Grooming(FIM): 4 Toileting(FIM): 4 Transfers (B,C,W/C) (FIM): 4 Toilet/Commode Transfer(FIM): 4 Additional Short Term Goals: 1-Demonstrate ADL Tasks, 2-Verbalize Understanding , 3-ImproveStrength/Fatmata 1=Demonstrate adherence to instructed precautions during ADL tasks. 2=Patient will verbalize/demonstrate understanding of assistive devices/ modifications for ADL. 3=Patient will improve strength/tolerance for activity to enable patient to perform ADL's. OT Penitentiary Goals Ceramic Plater Goals Time Frame: Nov 12, 2018 Eating (FIM): 6 Grooming(FIM): 5 Upper Body Dressing(FIM): 5 Toileting(FIM): 5 Transfers (B,C,W/C) (FIM): 5 Toilet/Commode Transfer(FIM): 5 Pt. will engage in discussion for Left UE assessment for positioning needs/tone management, and comfort. Additional Goals: 1-Demonstrate ADL Tasks, 2-Verbalize Understanding, 3- ImproveStrength/Fatmata 1=Demonstrate adherence to instructed precautions during ADL tasks. 2=Patient will verbalize/demonstrate understanding of assistive devices/ modifications for ADL. 3=Patient will improve strength/tolerance for activity to enable patient to perform ADL's. OT Education/Plan Problem List/Assessment Assessment: Decreased Activ Tolerance, Decreased UE Strength, Dependent Transfers, Impaired Bed Mobility, Impaired Coordination, Impaired Funct Balance , Impaired I ADL's, Impaired Self-Care Skills, Restricted Funct UE ROM Discharge Recommendations Plan/Recommendations: Continue POC Therapy D/C Recommendations: Assisted Living, Scheduled Assistance Treatment Plan/Plan of Care Treatment,Training & Education: Yes Patient would benefit from OT for education, treatment and training to promote independence in ADL's, mobility, safety and/or upper extremity function for ADL' s. Plan of Care: ADL Retraining, Functional Mobility, UE Funct Exercise/Act Treatment Duration: Nov 12, 2018 Frequency: 5 times per week Estimated Hrs Per Day: .25 hour per day Agreement: Yes Rehab Potential: Fair Time/GCodes Start Time: :30 Stop Time: 13:50 Total Time Billed (hr/min): 20 Billed Treatment Time 1, EVH x 20minutes MAGED MOSER OT Oct 22, 2018 16:26
[2018-10-22] MEDS ORDERED: FUROSEMIDE 40 MG/4 ML INJ (LASIX) IVP NR (16:30)
[2018-10-22] MEDS ORDERED: OLMESARTAN 20 MG (BENICAR) TABLET PO NR (16:30)
[2018-10-22] MEDS: RIVAROXABAN 20 MG TABLET (XARELTO) PO SCH (16:45)
[2018-10-22] MEDS: FUROSEMIDE 40 MG/4 ML INJ (LASIX) IVP SCH (16:46)
[2018-10-22] MEDS ORDERED: RT-LEVALBUTEROL (XOPENEX) 1.25 MG/3 ML NEB NON-FORMULARY INH PRN ×2 (17:00→17:15)
[2018-10-22] MEDS: RT-LEVALBUTEROL (XOPENEX) 1.25 MG/3 ML NEB NON-FORMULARY INH SCH (20:46)
[2018-10-22] MEDS: ROSUVASTATIN 10 MG (CRESTOR) TABLET PO SCH (21:36)
[2018-10-22] MEDS: TIMOLOL MALEATE 0.25% (TIMOPTIC) 5 ML DROPS OD SCH (21:37)
[2018-10-22] MEDS: LATANOPROST 0.005% (XALATAN) OPHTH SOLN 2.5 ML OU SCH (21:39)
[2018-10-22] MEDS: SENNA W/DOCUSATE (SENOKOT S) TABLET PO PRN (21:41)
[2018-10-23] VITALS (7 sets, daily range): BP systolic 104–146; BP diastolic 57–78
[2018-10-23 03:55] LABS: BASOPHILS % (AUTO) 0 % (0-10); EOSINOPHILS # (AUTO) 0.2 10^3/uL (0.0-0.3); EOSINOPHILS % (AUTO) 3 % (0-10); HEMATOCRIT 35 % (40-54); HEMOGLOBIN 11.4 G/DL (13.3-17.7); LYMPHOCYTES # (AUTO) 1.3 X 10^3 (1.0-4.0); LYMPHOCYTES % (AUTO) 28 % (12-44); MEAN CORPUSCULAR HEMOGLOBIN 31 PG (25-34); MEAN CORPUSCULAR HGB CONC 32 G/DL (32-36); MEAN CORPUSCULAR VOLUME 96 FL (80-99); MEAN PLATELET VOLUME 9.9 FL (7.4-10.4); MONOCYTES # (AUTO) 0.5 X 10^3 (0.0-1.0); MONOCYTES % (AUTO) 10 % (0-12); NEUTROPHILS # (AUTO) 2.8 X 10^3 (1.8-7.8); NEUTROPHILS % (AUTO) 59 % (42-75); PLATELET COUNT 200 10^3/uL (130-400); RED BLOOD COUNT 3.65 10^6/uL (4.35-5.85); RED CELL DISTRIBUTION WIDTH 15.1 % (10.0-14.5); WHITE BLOOD COUNT 4.8 10^3/uL (4.3-11.0)
[2018-10-23 04:17] LABS: ALANINE AMINOTRANSFERASE 22 U/L (0-55); ALBUMIN 3.7 GM/DL (3.2-4.5); ALKALINE PHOSPHATASE 66 U/L (40-136); BILIRUBIN,TOTAL 0.8 MG/DL (0.1-1.0); BUN/CREATININE RATIO 15; CALCIUM 9.5 MG/DL (8.5-10.1); CARBON DIOXIDE 26 MMOL/L (21-32); CHLORIDE 100 MMOL/L (98-107); CREATININE SERUM 0.74 MG/DL (0.60-1.30); GFR ESTIMATED > 60; GLUCOSE 114 MG/DL (70-105); MAGNESIUM 1.8 MG/DL (1.8-2.4); PHOSPHORUS 4.1 MG/DL (2.3-4.7); POTASSIUM 4.2 MMOL/L (3.6-5.0); SODIUM 136 MMOL/L (135-145); TOTAL PROTEIN 6.2 GM/DL (6.4-8.2)
[2018-10-23] MEDS: POTASSIUM CL 10MEQ/50ML IVPB 50 ML IV SCH ×2 (06:39→20:14)
[2018-10-23] MEDS: KCL 20 MEQ TAB (K-DUR) PO SCH ×2 (06:40→20:14)
[2018-10-23] MEDS: MAGNESIUM 1 GM/100 ML IVPB 100 ML IV SCH ×2 (06:40→20:14)
[2018-10-23] MEDS: FUROSEMIDE 40 MG/4 ML INJ (LASIX) IVP SCH ×2 (06:55→16:14)
--- NOTE | 2018-10-23 07:18 | Pulmonary Progress Note ---
Subjective Time Seen by a Provider: 07:50 Subjective/Events-last exam SOB is improving and he wants to be discharged. Sepsis Event Evaluation Height, Weight, BMI Height: 5'10.00" Weight: 215lbs. 0.0oz. [id number]; 31.1 BMI Method: Exam Exam Vital Signs Date Time Temp Pulse Resp B/P (MAP) Pulse Ox O2 Delivery O2 Flow Rate FiO2 10/23/18 04:00 97.0 77 20 143/75 (97) 97 Nasal Cannula 3.00 10/23/18 04:00 66 20 143/75 (97) 100 Nasal Cannula 3.00 10/23/18 04:00 94 Room Air 10/23/18 01:05 70 10/23/18 00:00 94 Room Air 10/23/18 00:00 97.6 73 16 116/63 (80) 97 Nasal Cannula 3.00 10/22/18 23:25 Nasal Cannula 3.00 10/22/18 22:33 97.6 74 22 118/70 (86) 94 Room Air 10/22/18 22:00 97.6 75 22 119/63 (81) 94 Nasal Cannula 3.00 10/22/18 21:00 75 23 95 Nasal Cannula 3.00 10/22/18 20:46 94 Room Air 10/22/18 20:00 94 Room Air 10/22/18 20:00 74 25 126/62 (83) 96 Nasal Cannula 3.00 10/22/18 19:00 73 18 126/66 (86) 96 Nasal Cannula 3.00 10/22/18 19:00 73 10/22/18 18:00 75 32 139/79 (99) 96 Nasal Cannula 3.00 10/22/18 17:00 75 28 144/83 (103) 97 Nasal Cannula 3.00 10/22/18 16:29 77 97 10/22/18 16:00 98.0 10/22/18 16:00 95 Nasal Cannula 1.00 10/22/18 16:00 75 28 142/71 (94) 95 Nasal Cannula 3.00 10/22/18 15:00 73 24 139/85 (103) 95 Nasal Cannula 3.00 10/22/18 14:00 75 27 106/72 (83) 95 Nasal Cannula 3.00 10/22/18 13:00 80 23 118/77 (91) 97 Nasal Cannula 3.00 10/22/18 13:00 75 10/22/18 12:00 97 Nasal Cannula 1.00 10/22/18 12:00 72 23 142/71 (94) 94 Nasal Cannula 3.00 10/22/18 12:00 98.2 10/22/18 11:00 65 24 104/58 (73) 94 Nasal Cannula 3.00 10/22/18 10:00 73 22 103/57 (72) 96 Nasal Cannula 3.00 10/22/18 09:19 Nasal Cannula 3.00 10/22/18 09:00 73 26 124/71 (88) 95 Nasal Cannula 3.00 10/22/18 08:00 95 Room Air 10/22/18 08:00 77 28 120/64 (82) 95 Nasal Cannula 3.00 10/22/18 08:00 97.5 I & O 10/23/18 07:00 Intake Total 3755 ml Output Total 3700 ml Balance 55 ml Height & Weight Height: 5'10.00" Weight: 215lbs. 0.0oz. [id number]; 31.1 BMI Method: General Appearance: No Apparent Distress, WD/WN, Moderate Distress HEENT: PERRL/EOMI, TMs Normal, Normal ENT Inspection, Pharynx Normal Neck: Full Range of Motion, Normal Inspection, Non Tender, Supple, Carotid Bruit Respiratory: Chest Non Tender, Lungs Clear, Normal Breath Sounds, No Accessory Muscle Use, No Respiratory Distress Cardiovascular: Regular Rate, Rhythm, No Edema, No Gallop, No JVD, Normal Peripheral Pulses, Systolic Murmur Extremity: Normal Capillary Refill, Normal Inspection, Normal Range of Motion, Non Tender, No Calf Tenderness, Pedal Edema (Mild edema) Neurologic/Psychiatric: Alert, Oriented x3, Motor Weakness (Left hemiplegia with right sided weakness) Skin: Normal Color, Warm/Dry Lymphatic: No Adenopathy Results Lab Laboratory Tests 10/22/18 03:38 10/23/18 03:35 Assessment/Plan Assessment/Plan Sob with pulmonary edema, hypoxia and atelectasis -Currently on 3 liters with Sp02 97% -PT is from ECF -Titrate oxygen as tolerated -is -Lasix -oxygen as needed -IS CHF EF 10-15% -Lasix Paroxysmal Afib -cardiology following NSTEMI -Cardiology following -Family is refusing cardiac cath Pt is ok from pulmonary standpoint for discharge. JEREMY BENOIT DO Oct 23, 2018 07:18
[2018-10-23] MEDS: RT-LEVALBUTEROL (XOPENEX) 1.25 MG/3 ML NEB NON-FORMULARY INH SCH ×2 (08:11→20:04)
--- NOTE | 2018-10-23 08:49 | Progress Note-Hospitalist ---
Subjective HPI/CC On Admission Date Seen by Provider: Oct 23, 2018 Time Seen by Provider: 08:39 Pt is an 83yoCM with a PMH of a fib, CVA with left sided residual weakness, HTN , and SPT who presented to the ER due to rapid heart rate. His states that on 09/28 his metoprolol was stopped by his PCP and since then he has been having "episodes" of not feeling well with nausea and fast heart rate. His Cardizem dose was not increased. He also had his Xarelto dose decreased in the past couple of months. On arrival to the ER in [facility] he was found to be in a-fib with RVR and started on Cardizem gtt. He was also noted to have an elevated troponin and was transferred here for ICU level care for carizem gtt and cardiology evaluation. He states he is feeling better today. He denies any complaints including SOB, CP, or heart racing today. Subjective/Events-last exam Pt is lying in bed receiving a breathing treatment. No concerns per patient. at bedside and states he was agitated overnight with transfer to a different room. Objective Exam Vital Signs Vital Signs Date Time Temp Pulse Resp B/P (MAP) Pulse Ox O2 Delivery O2 Flow Rate FiO2 10/23/18 08:12 96 Nasal Cannula 2.00 10/23/18 04:00 97.0 77 20 143/75 (97) Capillary Refill : Less Than 3 Seconds General Appearance: No Apparent Distress, Chronically ill Respiratory: Lungs Clear, No Respiratory Distress Cardiovascular: Regular Rate, Rhythm, No Murmur Gastrointestinal: Normal Bowel Sounds, Non Tender, Soft Extremity: No Calf Tenderness, No Pedal Edema Neurologic/Psychiatric: Alert, Other (oriented to person, place, and major details- seems to compensate for slight confusion with jokes) Results/Procedures Lab Laboratory Tests 10/23/18 03:35 Patient resulted labs reviewed. Assessment/Plan Assessment and Plan Assess & Plan/Chief Complaint A-fib with RVR Diagnosis/Problems Diagnosis/Problems (1) Atrial fibrillation with RVR Assessment & Plan: Currently oral cardizem and metoprolol Cardiology consulted Cont Xarelto Monitor on Tele Echo reveals EF of 10-15% Discussed hospice with patient and Would like to consider and interested in education (2) Cardiomyopathy Status: Chronic Assessment & Plan: Ef 10-15% Cardiology consulted Discussed hospice as above Qualifiers: Cardiomyopathy type: ischemic Qualified Codes: I25.5 - Ischemic cardiomyopathy (3) Elevated troponin Assessment & Plan: Now resolved (4) CAD (coronary artery disease) Status: Chronic Assessment & Plan: s/p 6 vessel CABG No observer electrical prospecting as an outpatient Cardiology consulted, appreciate recs Qualifiers: Coronary Disease-Associated Artery/Lesion type: bypass graft [place] vs. transplanted heart: [place] heart Associated angina: without angina Qualified Codes: I25.810 - Atherosclerosis of coronary artery bypass graft(s) without angina pectoris (5) Essential (primary) hypertension Assessment & Plan: BP well controlled Trend (6) CVA, old, hemiparesis Assessment & Plan: PT/OT consulted Clinical Quality Measures End of Life/Advance Care Plan: Advance Care discuss with: patient, family member (s) End of Life Care: Comfort Measures, Pallative Care, Hospice (Hospital) Plan: initiate discussion, clarifying prognosis Time spent on discussion(mins): 18 DVT/VTE Risk/Contraindication: Risk Factor Score Per Nursin RFS Level Per Nursing on Admit: 4+=Very High KATIE ZAIDI MD Oct 23, 2018 08:49
[2018-10-23] MEDS: DILTIAZEM 120 MG (CARDIZEM CD) CAP PO SCH (08:53)
[2018-10-23] MEDS: ASPIRIN E.C. 81 MG (ECOTRIN) TAB PO SCH (08:53)
[2018-10-23] MEDS: LOSARTAN 25 MG (COZAAR) TAB PO SCH (08:53)
[2018-10-23] MEDS ORDERED: DILTIAZEM HCL 120 MG PO SCH (09:00)
[2018-10-23] MEDS: TIMOLOL MALEATE 0.25% (TIMOPTIC) 5 ML DROPS OD SCH ×2 (09:01→21:01)
--- NOTE | 2018-10-23 10:13 | Cardiology Progress Note ---
Subjective Date Seen by Provider: Oct 23, 2018 Time Seen by Provider: 10:10 Subjective/Events-last exam Patient is laying down in bed, confused, feeling better, less dyspnea. No chest pain was reported Review of Systems General: No Chills, No Night Sweats, No Fatigue, No Malaise, No Appetite, No Other HEENT: No Head Aches, No Visual Changes, No Eye Pain, No Ear Pain, No Dysphasia , No Sinus Congestion, No Post Nasal Drip, No Sore Throat, No Other Pulmonary: No Dyspnea, No Cough, No Pleuritic Chest Pain, No Other Cardiovascular: No: Chest Pain, Palpitations, Orthopnea, Paroxysmal Noc. Dyspnea, Edema, Lt Headedness, Other Objective-Cardiology Exam Last Set of Vital Signs Vital Signs 10/23/18 10/23/18 07:00 08:12 Pulse 73 Pulse Ox 96 O2 Delivery Nasal Cannula O2 Flow Rate 2.00 Capillary Refill : Less Than 3 Seconds I&O Intake and Output 10/23/18 00:00 Intake Total 4155 ml Output Total 3800 ml Balance 355 ml Intake Oral 2030 ml IV Total 2125 ml Output Urine Total 3800 ml # Voids 1 # Bowel Movements 1 General: Alert, Oriented X3, Cooperative HEENT: Atraumatic, PERRLA Neck: Supple, No JVD, No Thyromegaly Lungs: Normal Air Movement, Other (bilateral rhonchi) Heart: Regular Rate, Normal S1, Normal S2, Other (S3 present) Abdomen: Normal Bowel Sounds, Soft, No Tenderness, No Hepatosplenomegaly, No Masses Extremities: No Clubbing, No Cyanosis, Normal Pulses, No Tenderness/Swelling, Other (mild edema) Skin: No Rashes, No Breakdown, No Significant Lesion Neuro: Normal Gait, Normal Speech, Strength at 5/5 X4 Ext, Normal Tone, Sensation Intact Psych/Mental Status: Mood NL, Other (confused) Results Lab Laboratory Tests 10/23/18 03:35 A/P-Cardiology Admission Diagnosis Non-ST elevation myocardial infarction Paroxysmal atrial fibrillation Coronary artery disease Hypertension CVA Assessment/Plan Acute non-ST elevation myocardial infarction, underlying coronary artery disease , troponin I returned to normal, conservative management. Continue to monitor Coronary artery disease history of CABG 6 in 2003 no follow-up done since then. Discussed the possibility of progression of his disease, occlusion of some of his bypass graft. Family and patient requested conservative management , no cardiac catheterization. Paroxysmal atrial fibrillation, had multiple episodes since 2011. Maintained on Xarelto. Will continue monitoring, currently back in sinus rhythm. Congestive heart failure, acute on chronic left ventricular systolic dysfunction , ischemic cardiomyopathy with ejection fraction 10-15 percent, mild to moderate MR, TR, PA 45 mmHg. Conservative management. 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 No recent stroke. History of DVT, IVC filter, maintained on Xarelto History of fall with rib fracture in 2011, multiple injury from falling. Hypertension, controlled on current medication. I will review his home medication. Hyperlipidemia, started on statin. Overall poor prognosis, we discussed the overall prognosis and the possibility of proceeding with comfort care. Dr. Villalta was present Clinical Quality Measures DVT/VTE Risk/Contraindication: Risk Factor Score Per Nursin RFS Level Per Nursing on Admit: 4+=Very High TYLOR MAX MD Oct 23, 2018 10:13 am
--- NOTE | 2018-10-23 10:50 | Physical Therapy Daily Note ---
PT Daily Note-Current Subjective Pt awake in bed watching tv when PT arrived. Pt agreed to participate with PT. Pain Numeric Pain Scale: 0-No Pain Location: No Pain Reported Mental Status Patient Orientation: Normal For Age Attachments: Rogers Catheter Transfers Therapy Code Descriptions/Definitions Functional [place] Measure: 0=Not Assessed/NA 4=Minimal Assistance 1=Total Assistance 5=Supervision or Setup 2=Maximal Assistance 6=Modified [place] 3=Moderate Assistance 7=Complete [place] Therapy Quality Codes: 6 Independent with activity with or without an assistive device 5 Patient requires set up or clean up by helper. Patient completes activity by themselves 4 Supervision or touching assist (CGA). [place] provide cues , steadying assist 3 The helper provides less than half the effort to complete the activity 2 The helper provides more than half the effort to complete the activity 1 Dependent. The helper does all the effort to complete an activity 7 Patient refused to complete or attempt activity 9 The patient did not perform the activity before the current illness or injury 88 Not attempted due to Medical conditions or safety concerns Weight Bearing Right Lower Extremity: Right Weight Bearing/Tolerated Left Lower Extremity: Left Weight Bearing/Tolerated Exercises Supine Ex: Heel Slides, Straight leg raise, Hip abd/add Supine Reps: 10 Treatments PROM with L LE Assessment Pt is able to complete supine bed exercises with his R LE. PT went through PROM on L LE due to patient being flaccid. Patient will continue therapy to maintain current level of function PT Short Term Goals Short Term Goals Transfers (B,C,W/C) (FIM): 4 PT Retirement Goals Retirement Goals PT Hvac Sales Representative Goals Time Frame: Oct 29, 2018 Transfers (B,C,W/C) (FIM): 4 Gait (FIM): 2 Gait distance (FIM): 7=824-49 ft Distance: 50' Gait Level of Assist: 4 Gait Assistive Device: Cane Large Base Quad, Cane Small Base Quad PT Plan Problem List Problem List: Activity Tolerance, Functional Strength, Safety, Balance, Gait, Transfer, Bed Mobility Treatment/Plan Treatment Plan: Continue Plan of Care Treatment Plan: Bed Mobility, Education, Functional Activity Fatmata, Functional Strength, Gait, Safety, Therapeutic Exercise, Transfers Treatment Duration: Oct 29, 2018 Frequency: 6 times per week Estimated Hrs Per Day: .25 hour per day Patient and/or Family Agrees t: Yes Time/GCodes Time In: 959 Time Out: 1015 Total Billed Treatment Time: 16 Total Billed Treatment 1 Visit EX - 16' RAPHAEL ESTRELLA PT Oct 23, 2018 10:50
[2018-10-23] MEDS ORDERED: FLU QUADRIvalent (5+ YOA) 2018-2019 (AFLURIA) 0.5 ML IM ONE (11:30)
--- NOTE | 2018-10-23 13:46 | Occupational Ther Daily Note ---
OT Current Status-Daily Note Subjective No pain reported. OT did let nurse aide know to report to nurse that spouse would like suprapubic catheter cleansed after sponge bath given. Appearance Pt. in bed. Getting ready to have a bed bath with nursing. OT talks with pt. and spouse and pt. agrees to work with OT toward this task. Spouse present and states that she will leave the room while OT assists pt. with spongebath. Mental Status/Objective Patient Orientation: Person, Place Therapy Code Descriptions/Definitions Functional [place] Measure: 0=Not Assessed/NA 4=Minimal Assistance 1=Total Assistance 5=Supervision or Setup 2=Maximal Assistance 6=Modified [place] 3=Moderate Assistance 7=Complete [place] Attachments: IV, Suprapubic Catheter ADL-Treatment Grooming (FIM): 4 (Pt. requires SBA at bed level with HOB elevated to brush teeth and comb hair. Pt. requires assistance to bring shah to mouth so that he can spit. Otherwise, pt. is able to put toothpaste into mouth by squeezing the tube directly into mouth, and is able to brush teeth with right UE. ) Bathing (FIM): 2 (Pt. is able to wash part of chest, face, and and left UE. OT washes right UE, back, front and rear tyrell areas, and bilateral LE. Please see note below.) Transfers (B, C, W/C) (FIM): 3 (Mod assist for supine to/from sit. ) Pt. agrees to work with OT. Transfers supine-sit with mod assist. Pt. able to balance self on side of bed and wash parts stated above. Pt. requires increased time to complete tasks. Pt. transfers sit-supine with mod assist and is able to roll with mod assist for OT to cleanse rear tyrell area. No street clothing available. After bath and fresh hospital gown is donned, pt. agrees to groom with HOB elevated. OT provides comb and toothbrush/toothpaste. SCDs re-applied and pt. is made comfortable. Call light given to pt. Spoke with spouse after treatment regarding pt's ability to participate. Spouse verbalizes understanding. Other Treatment OT is able to extend fingers of left UE for bathing needs. Noted increased tone in fingers, but full extension possible. OT washed and dried space and elevated left UE after ADL session. Education OT Patient Education: Correct positioning, Instructions to caregiver, Modified ADL techniques, Progress toward Goal/Update tx plan, Purpose of tx/functional activities, Reviewed precautions, Rehab process, Transfer techniques Teaching Recipient: Patient, Significant Other Teaching Methods: Demonstration, Discussion Response to Teaching: Verbalize Understanding, Return Demonstration OT Short Term Goals Short Term Goals Time Frame: Nov 05, 2018 Eating(FIM): 5 Grooming(FIM): 4 Toileting(FIM): 4 Transfers (B,C,W/C) (FIM): 4 Toilet/Commode Transfer(FIM): 4 Additional Short Term Goals: 1-Demonstrate ADL Tasks, 2-Verbalize Understanding , 3-ImproveStrength/Fatmata 1=Demonstrate adherence to instructed precautions during ADL tasks. 2=Patient will verbalize/demonstrate understanding of assistive devices/ modifications for ADL. 3=Patient will improve strength/tolerance for activity to enable patient to perform ADL's. OT Pyrometer Temperature Regulator Goals Pyrometer Temperature Regulator Goals Time Frame: Nov 12, 2018 Eating (FIM): 6 Grooming(FIM): 5 Upper Body Dressing(FIM): 5 Toileting(FIM): 5 Transfers (B,C,W/C) (FIM): 5 Toilet/Commode Transfer(FIM): 5 Pt. will engage in discussion for Left UE assessment for positioning needs/tone management, and comfort. Additional Goals: 1-Demonstrate ADL Tasks, 2-Verbalize Understanding, 3- ImproveStrength/Fatmata 1=Demonstrate adherence to instructed precautions during ADL tasks. 2=Patient will verbalize/demonstrate understanding of assistive devices/ modifications for ADL. 3=Patient will improve strength/tolerance for activity to enable patient to perform ADL's. OT Education/Plan Problem List/Assessment Assessment: Decreased Activ Tolerance, Decreased UE Strength, Dependent Transfers, Impaired Bed Mobility, Impaired Coordination, Impaired I ADL's, Impaired Self-Care Skills, Restricted Funct UE ROM Discharge Recommendations Plan/Recommendations: Continue POC Therapy D/C Recommendations: Assisted Living Treatment Plan/Plan of Care Treatment,Training & Education: Yes Patient would benefit from OT for education, treatment and training to promote independence in ADL's, mobility, safety and/or upper extremity function for ADL' s. Plan of Care: ADL Retraining, Functional Mobility, UE Funct Exercise/Act Treatment Duration: Nov 12, 2018 Frequency: 5 times per week Estimated Hrs Per Day: .25 hour per day Agreement: Yes Rehab Potential: Fair Time/GCodes Start Time: 11:35 Stop Time: 12:10 Total Time Billed (hr/min): 35 Billed Treatment Time 1, ADL x 35minutes MAGED MOSER OT Oct 23, 2018 13:46
[2018-10-23] MEDS: LACTOBACILLUS ACIDOPHILUS (PROBIOTIC) CAPSULE PO SCH (16:14)
[2018-10-23] MEDS: RIVAROXABAN 20 MG TABLET (XARELTO) PO SCH (16:14)
[2018-10-23] MEDS: SENNA W/DOCUSATE (SENOKOT S) TABLET PO PRN (20:53)
[2018-10-23] MEDS: LATANOPROST 0.005% (XALATAN) OPHTH SOLN 2.5 ML OU SCH (20:53)
[2018-10-23] MEDS: ROSUVASTATIN 10 MG (CRESTOR) TABLET PO SCH (20:53)
[2018-10-24 04:00] VITALS: BP 114/56
[2018-10-24] MEDS: FUROSEMIDE 40 MG/4 ML INJ (LASIX) IVP SCH (06:00)
[2018-10-24 06:19] LABS: BASOPHILS % (AUTO) 0 % (0-10); EOSINOPHILS # (AUTO) 0.2 10^3/uL (0.0-0.3); EOSINOPHILS % (AUTO) 4 % (0-10); HEMATOCRIT 37 % (40-54); HEMOGLOBIN 11.9 G/DL (13.3-17.7); LYMPHOCYTES # (AUTO) 1.2 X 10^3 (1.0-4.0); LYMPHOCYTES % (AUTO) 22 % (12-44); MEAN CORPUSCULAR HEMOGLOBIN 31 PG (25-34); MEAN CORPUSCULAR HGB CONC 32 G/DL (32-36); MEAN CORPUSCULAR VOLUME 97 FL (80-99); MONOCYTES # (AUTO) 0.7 X 10^3 (0.0-1.0); MONOCYTES % (AUTO) 13 % (0-12); NEUTROPHILS # (AUTO) 3.3 X 10^3 (1.8-7.8); NEUTROPHILS % (AUTO) 61 % (42-75); PLATELET COUNT 201 10^3/uL (130-400); RED BLOOD COUNT 3.83 10^6/uL (4.35-5.85); RED CELL DISTRIBUTION WIDTH 14.7 % (10.0-14.5); WHITE BLOOD COUNT 5.4 10^3/uL (4.3-11.0)
[2018-10-24 06:42] LABS: BUN/CREATININE RATIO 18; CALCIUM 9.4 MG/DL (8.5-10.1); CARBON DIOXIDE 30 MMOL/L (21-32); CHLORIDE 98 MMOL/L (98-107); CREATININE SERUM 0.76 MG/DL (0.60-1.30); GFR ESTIMATED > 60; GLUCOSE 126 MG/DL (70-105); MAGNESIUM 1.8 MG/DL (1.8-2.4); PHOSPHORUS 4.4 MG/DL (2.3-4.7); POTASSIUM 3.8 MMOL/L (3.6-5.0); SODIUM 138 MMOL/L (135-145)
[2018-10-24] MEDS: RT-LEVALBUTEROL (XOPENEX) 1.25 MG/3 ML NEB NON-FORMULARY INH SCH (06:54)
[2018-10-24 07:37] VITALS: BP 119/56
[2018-10-24] MEDS ORDERED: ROSU10TA27 PO (08:38)
--- NOTE | 2018-10-24 08:45 | Discharge Inst-Simple/Standard ---
Discharge Inst-Standard Discharge Medications New, Converted or Re-Newed RX: Transmitted to Pharmacy Patient Instructions/Follow Up Plan of Care/Instructions/FU: Please continue to take your medicatoins as written. Please follow up with Dr Sigala to follow up this hospital stay. Activity as Tolerated: Yes Discharge Diet: No Restrictions Return to The Hospital For: If you symptoms are not controlled or you feel you are getting worse. KATIE ZAIDI MD Oct 24, 2018 08:45
--- NOTE | 2018-10-24 08:48 | Discharge Summary-Hospitalist ---
Diagnosis/Chief Complaint Date of Admission Oct 21, 2018 at 19:50 Date of Discharge Discharge Date: Oct 24, 2018 Admission Diagnosis a-fib with RVR Discharge Diagnosis (1) Atrial fibrillation with RVR Assessment & Plan: Currently oral cardizem and metoprolol Cardiology consulted Cont Xarelto Monitor on Tele Echo reveals EF of 10-15% Discussed hospice with patient and Would like to consider and interested in education (2) Cardiomyopathy Status: Chronic Assessment & Plan: Ef 10-15% Cardiology consulted Discussed hospice as above (3) Elevated troponin Assessment & Plan: Now resolved (4) CAD (coronary artery disease) Status: Chronic Assessment & Plan: s/p 6 vessel CABG 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 Cardiology consulted, appreciate recs (5) Essential (primary) hypertension Assessment & Plan: BP well controlled Trend (6) CVA, old, hemiparesis Assessment & Plan: PT/OT consulted Discharge Summary Procedures/Consulations Dr Caroline Pena Discharge Physical Exam Allergies: Coded Allergies: No Known Allergies (Verified Allergy, Unknown, 10/21/18) Vitals & I&Os Vital Signs Date Time Temp Pulse Resp B/P (MAP) Pulse Ox O2 Delivery O2 Flow Rate FiO2 10/24/18 17:49 70 20 119/57 95 Room Air 10/24/18 11:50 98.1 2.00 General Appearance: No Apparent Distress, Chronically ill Respiratory: Lungs Clear, No Respiratory Distress Cardiovascular: No Murmur, Irregularly Irregular Hospital Course Pt was admitted to the ICU from [facility] for a-fib with RVR. His rate improved and he was titrated off of the cardizem gtt. Echo was done which revealed an EF of 10-15%. Cardiology was consulted and recommended best supportive care and hospice. Discussions where had with patient and his who recognized his overall decline and were agreeable to hospice enrollment. He was discharged back to his [facility] facility and his planned to call the two hospice agencies the [facility] recommended to enroll in hospice after discharge. He was discharged in stable condition. Labs (last 24 hrs) Microbiology 10/22/18 MRSA Screen - Final, Complete MRSA not isolated Patient resulted labs reviewed. Pending Labs Discussion & Recommendations Discharge Planning: >30 minutes discharge planning Discharge Home Medications: Active Scripts Active Rosuvastatin Calcium 10 Mg Tablet 10 Mg PO HS Reported [Chew Mtv W/Mineral] 2 Tab.chew PO TIDWM [Body And Vision] 3 Tab PO 1600 Astaxanthin 4 Mg Capsule 8 Mg PO 1600 Probiotic (Lactobacillus Combo No.10) 1 Each Capsule 2 Cap PO 1600 Cranberry (Cranberry Extract) 500 Mg Tablet 1,500 Mg PO 1600 Vitamin D3 (Cholecalciferol (Vitamin D3)) 1,000 Unit Capsule 1,000 Unit PO DAILY Multivitamins with Minerals (Multivitamin with Minerals) 1 Each Tablet 2 Tab PO 1600 C-1000 (Ascorbic Acid) 1,000 Mg Tablet 4,000 Mg PO 1600 Senokot-S Tablet (Sennosides/Docusate Sodium) 1 Each Tablet 1 Tab PO DAILY PRN Zinc (Zinc Gluconate) 50 Mg Tablet 50 Mg PO DAILY Benefiber (Wheat Dextrin) 1 Each Powd.pack 1 Tbs PO DAILY PRN Juan-E (S-Adenosylmethionine Sul Tosyl) 200 Mg Tablet 200 Mg PO BID Dulcolax (Bisacodyl) 10 Mg Supp.rect 10 Mg RC DAILY PRN Tylenol (Acetaminophen) 325 Mg Tablet 650 Mg PO Q4H PRN l-Glutamine (Glutamine) 25 Gm Powder 1 Packet PO ACHS [[place] 23] 5 Ml PO UD HAVE HOLD 5ML IN MOUTH FOR 30 SECONDS AND SWALLOW BEFORE MEALS [Gastrogest] 2 Tab PO TIDWM Gas Relief (Simethicone) 80 Mg Tab.chew 3 Tab PO TIDAC Xarelto (Rivaroxaban) 10 Mg Tablet 10 Mg PO 1700 Timolol Maleate 5 Ml Drop.daily 1 Drop OD DAILY Metoprolol Tartrate 50 Mg Tablet 25 Mg PO DAILY PRN Diltiazem 24Hr ER (Diltiazem HCl) 120 Mg Cap.er.24h 120 Mg PO DAILY Latanoprost 2.5 Ml Drops 1 Drop OU HS Olmesartan Medoxomil 5 Mg Tablet 5 Mg PO 1200 Instructions to patient/family Please see electronic discharge instructions given to patient. Clinical Quality Measures DVT/VTE Risk/Contraindication: Risk Factor Score Per Nursin RFS Level Per Nursing on Admit: 4+=Very High Problem Qualifiers (1) Cardiomyopathy: Cardiomyopathy type: ischemic Qualified Codes: I25.5 - Ischemic cardiomyopathy (2) CAD (coronary artery disease): Coronary Disease-Associated Artery/Lesion type: bypass graft [place] vs. transplanted heart: [place] heart Associated angina: without angina Qualified Codes: I25.810 - Atherosclerosis of coronary artery bypass graft(s) without angina pectoris KATIE ZAIDI MD Oct 24, 2018 08:48
--- NOTE | 2018-10-24 08:49 | Cardiology Progress Note ---
Subjective Date Seen by Provider: Oct 24, 2018 Time Seen by Provider: 08:47 Subjective/Events-last exam Patient resting in bed, no new complaint. Denies any chest pain or palpitations. Review of Systems General: No Night Sweats, No Fatigue HEENT: No Visual Changes, No Dysphasia Pulmonary: Dyspnea; No Cough, No Pleuritic Chest Pain Cardiovascular: Edema; No: Chest Pain, Palpitations, Paroxysmal Noc. Dyspnea Gastrointestinal: No: Nausea, Vomiting, Abdominal Pain Genitourinary: No Dysuria, No Frequency Musculoskeletal: No: neck pain, back pain Neurological: No: Weakness, Numbness, Change in speech, Confusion Objective-Cardiology Exam Last Set of Vital Signs Vital Signs 10/24/18 07:37 Temp 95.6 Pulse 72 Resp 18 B/P (MAP) 119/56 (77) Pulse Ox 97 O2 Delivery Room Air O2 Flow Rate 2.00 Capillary Refill : Less Than 3 Seconds I&O Intake and Output 10/24/18 00:00 Intake Total 1960 ml Output Total 5150 ml Balance -3190 ml Intake Oral 1960 ml Output Urine Total 5150 ml General: Alert, Oriented X3, Cooperative HEENT: Atraumatic, PERRLA Neck: Supple, No JVD, No Thyromegaly Lungs: Normal Air Movement, Other (bilateral rhonchi) Heart: Regular Rate, Normal S1, Normal S2, Other (S3 present) Abdomen: Normal Bowel Sounds, Soft, No Tenderness, No Hepatosplenomegaly, No Masses Extremities: No Clubbing, No Cyanosis, Normal Pulses, No Tenderness/Swelling, Other (mild edema) Skin: No Rashes, No Breakdown, No Significant Lesion Neuro: Normal Gait, Normal Speech, Strength at 5/5 X4 Ext, Normal Tone, Sensation Intact Psych/Mental Status: Mood NL, Other (confused) Results Lab Laboratory Tests 10/24/18 06:09 A/P-Cardiology Admission Diagnosis Non-ST elevation myocardial infarction Paroxysmal atrial fibrillation Coronary artery disease Hypertension CVA Assessment/Plan Acute non-ST elevation myocardial infarction, underlying coronary artery disease , troponin I returned to normal, conservative management. Continue to monitor Coronary artery disease history of CABG 6 in 2003, no follow-up done since then. Discussed the possibility of progression of his disease, occlusion of some of his bypass graft. Family and patient requested conservative management , no cardiac catheterization. Paroxysmal atrial fibrillation, had multiple episodes since 2011. Maintained on Xarelto. Will continue monitoring, currently back in sinus rhythm. Congestive heart failure, acute on chronic left ventricular systolic dysfunction , ischemic cardiomyopathy with ejection fraction 10-15 percent, mild to moderate MR, TR, PA 45 mmHg. Conservative management. 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 No recent stroke. History of DVT, IVC filter, maintained on Xarelto History of fall with rib fracture in 2011, multiple injury from falling. Hypertension, controlled on current medication. I will review his home medication. Hyperlipidemia, started on statin. Overall poor prognosis, we discussed the overall prognosis and the possibility of proceeding with comfort care. Clinical Quality Measures DVT/VTE Risk/Contraindication: Risk Factor Score Per Nursin RFS Level Per Nursing on Admit: 4+=Very High CORAL SWANSON Oct 24, 2018 08:49
[2018-10-24] MEDS: LOSARTAN 25 MG (COZAAR) TAB PO SCH (09:03)
[2018-10-24] MEDS: ASPIRIN E.C. 81 MG (ECOTRIN) TAB PO SCH (09:03)
[2018-10-24] MEDS: DILTIAZEM 120 MG (CARDIZEM CD) CAP PO SCH (09:03)
[2018-10-24] MEDS: TIMOLOL MALEATE 0.25% (TIMOPTIC) 5 ML DROPS OD SCH (09:04)
--- NOTE | 2018-10-24 09:41 | Pulmonary Progress Note ---
Sepsis Event Evaluation Height, Weight, BMI Height: 5'10.00" Weight: 212lbs. 3.0oz. 96.279933do; 31.1 BMI Method: Exam Exam Vital Signs Date Time Temp Pulse Resp B/P (MAP) Pulse Ox O2 Delivery O2 Flow Rate FiO2 10/24/18 07:37 95.6 72 18 119/56 (77) 97 Room Air 2.00 10/24/18 07:00 68 10/24/18 06:56 Room Air 3.00 10/24/18 06:48 96 2.00 10/24/18 04:00 97.1 69 18 114/56 (75) 99 Room Air 2.00 10/24/18 01:00 95 10/23/18 23:15 98.8 95 17 111/76 (88) 94 Room Air 10/23/18 20:04 93 Room Air 10/23/18 20:00 Room Air 10/23/18 19:58 98.7 74 18 104/57 (73) 92 Room Air 10/23/18 19:00 77 10/23/18 16:57 99.1 76 19 105/59 (74) 93 Room Air 10/23/18 13:00 69 10/23/18 12:00 97.4 76 20 146/78 (100) 94 Room Air I & O 10/24/18 06:59 Intake Total 2460 ml Output Total 5300 ml Balance -2840 ml Height & Weight Height: 5'10.00" Weight: 212lbs. 3.0oz. 96.903247we; 31.1 BMI Method: General Appearance: No Apparent Distress, Chronically ill HEENT: PERRL/EOMI, TMs Normal, Normal ENT Inspection, Pharynx Normal Neck: Full Range of Motion, Normal Inspection, Non Tender, Supple, Carotid Bruit Respiratory: Lungs Clear, No Respiratory Distress Cardiovascular: No Murmur, Irregularly Irregular Extremity: No Calf Tenderness, No Pedal Edema Neurologic/Psychiatric: Alert, Oriented x3, Motor Weakness (left sided- chronic ) Skin: Normal Color, Warm/Dry Lymphatic: No Adenopathy Results Lab Laboratory Tests 10/23/18 03:35 10/24/18 06:09 Assessment/Plan Assessment/Plan Sob with pulmonary edema, hypoxia and atelectasis -Titrate oxygen as tolerated -Lasix -oxygen as needed -IS CHF EF 10-15% -Lasix Paroxysmal Afib -cardiology following NSTEMI -Cardiology following -Family is refusing cardiac cath Pt is ok from pulmonary standpoint for discharge. JEREMY BENOIT DO Oct 24, 2018 09:41
[2018-10-24 11:50] VITALS: BP 119/57
--- NOTE | 2018-10-24 14:29 | Cardiology Progress Note ---
Subjective Date Seen by Provider: Oct 24, 2018 Time Seen by Provider: 14:24 Subjective/Events-last exam Patient is in bed, eating lunch, no chest pain, had a long discussion with the , discussed long-term plan and medication Review of Systems General: No Chills, No Night Sweats, No Fatigue, No Malaise, No Appetite, No Other HEENT: No Head Aches, No Visual Changes, No Eye Pain, No Ear Pain, No Dysphasia , No Sinus Congestion, No Post Nasal Drip, No Sore Throat, No Other Pulmonary: No Dyspnea, No Cough, No Pleuritic Chest Pain, No Other Cardiovascular: No: Chest Pain, Palpitations, Orthopnea, Paroxysmal Noc. Dyspnea, Edema, Lt Headedness, Other Objective-Cardiology Exam Last Set of Vital Signs Vital Signs 10/24/18 10/24/18 11:50 13:00 Temp 98.1 Pulse 70 Resp 20 B/P (MAP) 119/57 (77) Pulse Ox 95 O2 Delivery Room Air O2 Flow Rate 2.00 Capillary Refill : Less Than 3 Seconds I&O Intake and Output 10/24/18 00:00 Intake Total 1960 ml Output Total 5150 ml Balance -3190 ml Intake Oral 1960 ml Output Urine Total 5150 ml General: Alert, Oriented X3, Cooperative HEENT: Atraumatic, PERRLA Neck: Supple, No JVD, No Thyromegaly Lungs: Normal Air Movement, Other (bilateral rhonchi) Heart: Regular Rate, Normal S1, Normal S2, Other (S3 present) Abdomen: Normal Bowel Sounds, Soft, No Tenderness, No Hepatosplenomegaly, No Masses Extremities: No Clubbing, No Cyanosis, Normal Pulses, No Tenderness/Swelling, Other (mild edema) Skin: No Rashes, No Breakdown, No Significant Lesion Neuro: Normal Gait, Normal Speech, Strength at 5/5 X4 Ext, Normal Tone, Sensation Intact Psych/Mental Status: Mood NL, Other (confused) Results Lab Laboratory Tests 10/24/18 06:09 A/P-Cardiology Admission Diagnosis Non-ST elevation myocardial infarction Paroxysmal atrial fibrillation Coronary artery disease Hypertension CVA Assessment/Plan Acute non-ST elevation myocardial infarction, underlying coronary artery disease , troponin I returned to normal, conservative management. Patient may do on comfort care Coronary artery disease history of CABG 6 in 2003, no follow-up done since then. Discussed the possibility of progression of his disease, occlusion of some of his bypass graft. Family and patient requested conservative management , no cardiac catheterization. Paroxysmal atrial fibrillation, had multiple episodes since 2012. Maintained on Xarelto. Will continue monitoring, currently back in sinus rhythm. Congestive heart failure, acute on chronic left ventricular systolic dysfunction , ischemic cardiomyopathy with ejection fraction 10-15 percent, mild to moderate MR, TR, PA 45 mmHg. Conservative management. 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 No recent stroke. History of DVT, IVC filter, maintained on Xarelto History of fall with rib fracture in 2011, multiple injury from falling. Hypertension, controlled on current medication. I will review his home medication. Hyperlipidemia, started on statin. Overall poor prognosis, we discussed the overall prognosis and the possibility of proceeding with comfort care. Clinical Quality Measures DVT/VTE Risk/Contraindication: Risk Factor Score Per Nursin RFS Level Per Nursing on Admit: 4+=Very High TYLOR MAX MD Oct 24, 2018 14:29
--- NOTE | 2018-10-24 14:33 | Physical Therapy Progress Note ---
Therapy Progress Note 1432 Pt eating lunch with family in room, discharging from hospital soon, PT treatment declined CYNTHIA FRENCH INTERNAL CONSULTANT Oct 24, 2018 14:33
[2018-10-24 17:49] VITALS: BP 119/57
== END 2018-10-24 16:55 | DRG 280 ==
LOC: ICU 19:50 → 4TH 10-23 04:20
PROVIDERS: ADMIT Internal Medicine; ATTEND Family Medicine
DX: I21.4 Non-ST elevation (NSTEMI) myocardial infarction (principal); I48.0 Paroxysmal atrial fibrillation; I11.0 Hypertensive heart disease with heart failure; I50.23 Acute on chronic systolic (congestive) heart failure; I25.810 Atherosclerosis of coronary artery bypass graft(s) without angina pectoris; I69.354 Hemiplegia and hemiparesis following cerebral infarction affecting left non-dominant side; I69.351 Hemiplegia and hemiparesis following cerebral infarction affecting right dominant side; G47.30 Sleep apnea, unspecified; Z66 Do not resuscitate; R09.02 Hypoxemia; I08.1 Rheumatic disorders of both mitral and tricuspid valves; Z95.1 Presence of aortocoronary bypass graft; E78.00 Pure hypercholesterolemia, unspecified; H40.9 Unspecified glaucoma; I25.5 Ischemic cardiomyopathy; E78.5 Hyperlipidemia, unspecified; Z91.81 History of falling
CPT/HCPCS: 36415; 71045; 80048; 80053; 80061; 83735; 84100; 84484; 85025; 85027; 87081; 93005; 93306; 94640; 94760; 94761